=== PATIENT | male | born 1980 | race Caucasian/White ===

== ENCOUNTER 2023-07-10 08:50 | Inpatient (IN) ==
--- NOTE | 2023-06-21 10:04 | PAT Medication Instructions ---
Medication Instructions Date of Service June 21, 2023 Home Medications acetaminophen 325 mg tablet (Tylenol) 325 mg PO QID PRN Pain ibuprofen 200 mg tablet 200 mg PO Q6H PRN Pain omeprazole 20 mg capsule,delayed release 20 mg PO QAM PRN Heartburn ASK your surgeon for instructions ibuprofen 200 mg tablet 200 mg PO Q6H PRN Pain Take morning of surgery With a small sip of water, OTHERWISE NOTHING TO EAT OR DRINK AFTER MIDNIGHT: acetaminophen 325 mg tablet (Tylenol) 325 mg PO QID PRN Pain (if needed) omeprazole 20 mg capsule,delayed release 20 mg PO QAM PRN Heartburn (if needed) Take evening before surgery acetaminophen 325 mg tablet (Tylenol) 325 mg PO QID PRN Pain (if needed) Other Notes If you have any questions please call us at [phone] or [phone] or [phone] or [phone]
--- NOTE | 2023-06-27 14:14 | Anesthesiology Consultation ---
Date of Service June 27, 2023 Assessment & Plan (1) Encounter for pre-operative examination: - awaiting surgeon ordered medical clearance, Dr. Tigist BEGUM. Optimization form completed to be faxed to PCP with PAT testing. Chart Review Chart Review: Pending: Refer to Additional Notes / Consult section and Patient seen in Pre Admission Testing Teaching & Discussion Pre-Anesthesia Teaching/Discussion Notes: Instructed NPO after midnight before surgery, except medications with 15 cc of water. Medication instructions provided according to the PAT guidelines. History Surgery Operation Date: 07/10/23 11:05 Proposed Procedures p L5-S1 Decompression and Fusion, Spinal Cord Monitoring - John Shirley DO Height/Weight Height: 6 ft 1 in Weight: 79 kg Allergies Allergy/AdvReac Type Severity Reaction Status Date / Time No Known Allergies Allergy Verified 06/20/23 13:41 Additional Notes: Patient's mother is also present at PAT appointment. 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 speech can be difficult to understand, patient can read and sign his name, but does have difficult time writing. Chronic back pain Degenerative disc disease Heartburn occasional, controlled, stable per pt History of COVID-19 2020 - mild cold symptoms - denies hospitalization - symptoms resolved Sleep apnea hx of UPPP surgery, no machine currently. Spinal stenosis Patient denies h/o stroke, seizures, heart attack, heart failure, DM, HTN, blood clots/DVTs or blood transfusions. Exercise / Class Metabolic Activity II 4-5 Yardwork/Stairs/Walk up hill (denies chest discomfort or shortness of breath with 1 FOS) Past Family History Family History Other No family history of adverse response to anesthesia Past Surgical History Surgical History History of myringotomy BMT S/P epidural steroid injection S/P tendon repair bilateral knee and ankle tendons lengthened. (1992) Status post uvulopalatopharyngoplasty (~2017) Past Anesthesia History No Hx of Anesthesia Complications and No Family Hx of Anesthesia Complications History of PONV No Hx of PONV and No Hx of Motion Sickness Social History Smoking Status: Never smoker Do You Dip or Chew Tobacco: No Hx Alcohol Use: Yes Alcohol type: hard liquor alcohol intake frequency: a few times a week Hx Substance Use: No substance use type: does not use Review of Systems Patient denies chest pain, shortness of breath, dyspnea on exertion, fever, chills, cough, wheezing, or palpitations. Physical Exam Vital Signs Vitals BP 121/82 P 87 TEMP 98.2 SP02 94% on RA RESP 17 Physical Patient resting comfortably in chair in no acute distress, alert and oriented, responding appropriately throughout visit Full cervical extension range of motion without pain TMD 3.5 finger breadths Mallampati Score 3 Dentition: edentulous, full upper and lower dentures Lungs: normal respiratory effort. Good air movement, clear throughout to auscultation, no adventitious breath sounds Cardiac: regular rate and rhythm, no murmurs noted Carotid arteries: negative bruit bilat Lab Results Anesthesia Preop Results Results Anesthesia Widget: WBC 4.19 K/ul (4.8-10.8) L 06/27/23 Hgb 15.5 g/dl (14.0-18.0) 06/27/23 Hct 44.1 % (42.0-52.0) 06/27/23 Plt 233 K/uL (130-400) 06/27/23 Na 138 mmol/L (136-145) 06/27/23 K 4.3 mmol/L (3.5-5.1) 06/27/23 Cl 103 mmol/L (98-107) 06/27/23 CO2 30 mmol/L (21-32) 06/27/23 BUN 14 mg/dl (6-23) 06/27/23 Creat 1.39 mg/dl (0.6-1.4) 06/27/23 Glucose Level 85 mg/dl (70-99(Fasting)) 06/27/23 PT 10.9 Seconds (9.0-12.0) 06/27/23 PTT 27.2 Seconds (21.0-31.0) 06/27/23 INR 1.0 (0.9-1.1) 06/27/23 Urine Color Yellow 06/27/23 Urine Appearance Clear (Clear) 06/27/23 Urine pH 5.5 (4.5-7.5) 06/27/23 Urine Specific [place] 1.015 (1.000-1.030) 06/27/23 Urine Protein Negative (Negative) 06/27/23 Urine Glucose (UA) Negative (Negative) 06/27/23 Urine Ketones Negative (Negative) 06/27/23 Urine Blood Negative (Negative) 06/27/23 Urine Nitrite Negative (Negative) 06/27/23 Urine Bilirubin Negative (Negative) 06/27/23 Urine Urobilinogen Negative (Negative) 06/27/23 Urine Leukocyte Esterase Negative (Negative) 06/27/23 Blood Type O Negative 06/27/23 Antibody Screen NEGATIVE 06/27/23 Testing Electrocardiogram Date: 06/27/23 NSR, rate 86 bpm Chest X-Ray Date: 06/27/23 1. No air space consolidation typical for pneumonia. 2. Mild coarsening of the interstitium may be secondary to summation density versus less likely a nonspecific interstitial pneumonitis.
[~2023-07-10 08:50] MED LIST: ACETAMINOPHEN 500 MG TAB PO SCH; CeleBREX 200 MG CAP PO SCH; GABAPENTIN 900 MG DOSE PO SCH; LR 15ML/HR IV SCH; LR 60ML/HR IV SCH; ceFAZolin 2000MG 2,000 MG/15 ML SYR IV SCH
--- NOTE | 2023-07-10 09:42 | History & Physical Bridge Note ---
Date of Service July 10, 2023 History & Physical Bridge Note I have examined the patient, reviewed the History & Physical and in the interval since the performance of the History & Physical I have noted the following changes of clinical significance: no changes noted
--- NOTE | 2023-07-10 09:42 | History & Physical Report ---
Date of Service July 10, 2023 History of Present Illness Chief Complaint: Back and leg pain Primary Care Provider: GERONIMO DURAN This is a 43-year-old male who presents with chronic persistent back and leg pain after failing course of nonoperative care is here for surgical intervention. 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 speech can be difficult to understand, patient can read and sign his name, but does have difficult time writing. Chronic back pain Degenerative disc disease Heartburn occasional, controlled, stable per pt History of COVID-19 2020 - mild cold symptoms - denies hospitalization - symptoms resolved Sleep apnea hx of UPPP surgery, no machine currently. Spinal stenosis Surgical History History of myringotomy BMT S/P epidural steroid injection S/P tendon repair bilateral knee and ankle tendons lengthened. (1992) Status post uvulopalatopharyngoplasty (~2016) Family History Other No family history of adverse response to anesthesia Social History Smoking Status: Never smoker Second Hand Exposure: No; Do You Dip or Chew Tobacco: No; Tobacco Cessation Education Requested by Patient: No Hx Alcohol Use: Yes Alcohol type: hard liquor Hx Substance Use: No Preferred Language: Ecuadorean Communication Ability: Impaired Husbandry Person Required: No Beliefs That Will Affect Care: None Current Living Situation: Alone Other Information That Helps Us Care for You: No Feels Safe at Home: Yes Safety Concerns: Feels Safe At This Time Gender Identity: Male Assistive Devices: None Results & Data Results & Data Vital Signs (Past 12 Hours) Vital Signs Temp Pulse Resp BP Pulse Ox O2 Del Method 07/10/23 09:13 36.4 C L 71 18 128/82 95 Room Air
--- NOTE | 2023-07-10 09:44 | History & Physical Report ---
Date of Service July 10, 2023 Assessment & Plan (1) Neurogenic claudication due to lumbar spinal stenosis: Plan: L5-S1 decompression and fusion History of Present Illness Chief Complaint: Back and leg pain Primary Care Provider: GERONIMO DURAN This is a 43-year-old male who presents with chronic persistent back and leg pain after failing extensive course of nonoperative care is here for surgical intervention. 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 speech can be difficult to understand, patient can read and sign his name, but does have difficult time writing. Chronic back pain Degenerative disc disease Heartburn occasional, controlled, stable per pt History of COVID-19 2020 - mild cold symptoms - denies hospitalization - symptoms resolved Sleep apnea hx of UPPP surgery, no machine currently. Spinal stenosis Surgical History History of myringotomy BMT S/P epidural steroid injection S/P tendon repair bilateral knee and ankle tendons lengthened. (1992) Status post uvulopalatopharyngoplasty (~2016) Family History Other No family history of adverse response to anesthesia Social History Smoking Status: Never smoker Second Hand Exposure: No; Do You Dip or Chew Tobacco: No; Tobacco Cessation Education Requested by Patient: No Hx Alcohol Use: Yes Alcohol type: hard liquor Hx Substance Use: No Preferred Language: Nepalese Communication Ability: Impaired Web Services Architect Required: No Beliefs That Will Affect Care: None Current Living Situation: Alone Other Information That Helps Us Care for You: No Feels Safe at Home: Yes Safety Concerns: Feels Safe At This Time Gender Identity: Male Assistive Devices: None Physical Exam Physical Exam: Patient is alert and oriented Heart regular rhythm Lungs clear Results & Data Results & Data Vital Signs (Past 12 Hours) Vital Signs Temp Pulse Resp BP Pulse Ox O2 Del Method 07/10/23 09:13 36.4 C L 71 18 128/82 95 Room Air
[2023-07-10] MEDS ORDERED: BUPIVACAINE/EPINEPHRINE 0.25% 1:200,000 30 ML VIAL ONE (09:56)
[2023-07-10] MEDS ORDERED: ceFAZolin 330 MG/ML 1 GM VIAL ONE (09:56)
[2023-07-10] MEDS ORDERED: LIDOCAINE 2% 2 ML VIAL/AMP(20MG/ML) INFIL ONE (10:10)
[2023-07-10] MEDS ORDERED: PROPOFOL IV EMULSION 10 MG/ML 20 ML VIAL IV ONE (10:10)
[2023-07-10] MEDS ORDERED: ROCURONIUM BROMIDE 10 MG/ML 5 ML VIAL IV ONE ×2 (10:10→11:12)
[2023-07-10] MEDS ORDERED: fentaNYL citrate PF 100 MCG/2 ML VIAL ONE ×2 (10:11→10:37)
[2023-07-10] MEDS ORDERED: ONDANSETRON INJ 2 MG/ML 2 ML VIAL ONE (10:12)
[2023-07-10] MEDS ORDERED: DEXAMETHASONE SOD INJ 4 MG/ML VIAL ONE (10:12)
[2023-07-10] MEDS ORDERED: ATROPINE SULFATE 0.1 MG/ML 10ML SYR IV PRN (10:14)
[2023-07-10] MEDS ORDERED: ePHEDrine sulfate 50 MG/ML AMP IV PRN (10:14)
[2023-07-10] MEDS ORDERED: ONDANSETRON INJ 2 MG/ML 2 ML VIAL IV PRN (10:14)
[2023-07-10] MEDS ORDERED: ePHEDrine sulfate 50 MG/ML AMP ONE (11:12)
[2023-07-10] MEDS ORDERED: FLOSEAL HEMOSTATIC MATRIX 10ML TOP ONE (11:21)
[2023-07-10] MEDS ORDERED: HYDROmorphone INJ 2 MG/ML SYR/VIAL ONE (11:23)
[2023-07-10] MEDS ORDERED: SUGAMMADEX SODIUM 200 MG/2 ML VIAL IV ONE (12:22)
--- NOTE | 2023-07-10 12:29 | Operative Report ---
Post Operative Report Pre & Post Diagnosis Operation Date: 07/10/23 11:05 Pre-Op Diagnosis: Neurogenic claudication due to lumbar spinal stenosis Spondylolisthesis L5-S1 Post-Op Diagnosis: same I identified the patient and participated in the time-out.: Yes Procedure Operation Date: 07/10/23 11:05 Actual Procedures 1. Lumbar decompression with bilateral medial facetectomies and foraminotomies L4-5 L5-S1. #2 posterior spinal fusion L5-S1. #3 placed posterior instrumentation L5-S1. #4 interbody fusion L5-S1. #5 placement Spira 13 x 26 mm x 2 at L5-S1. #6 placement locally harvested morselized autograft posterior gutters. #7 placement of I factor amount of the talus in the interbody space and posterior gutters. Surgeon John Shirley, Group Social Worker Lamar Pérez Estimated Blood Loss 350 Findings Consistent with Post-Op Diagnosis Specimens none Indications This is a 43-year-old male who presents with spondylolisthesis back and bilaterally pain after failing since course of nonoperative care is here for surgical invention. Description of Procedure Patient was met with identified informed consent obtained. Patient was then taken to the operative suite underwent a patient placed in a prone position on the Kwesi table top of the Edilberto frame. All bony promises well-padded eyes inspected to ensure no external pressure placed upon them. This point lumbar spine was prepped and draped in a sterile fashion. Sharp dissection with the assistance of Bovie cautery to form down to and exposing the lamina and transverse processes of L5 and the sacral ala bilaterally. Obvious bilateral pars defect and spina bifida occulta noted. Complete laminectomy L5 was then performed including partial laminectomy of L4 to include bilateral medial facetectomies and foraminotomies addressing severe neural compression. Pedicle screws were then placed in L5 and S1 levels bilaterally with assistance of fluoroscopy and the properly sized aurelio placed. By way of transforaminal approach on the right and discectomy was performed endplates curetted to subcortical bleeding bone and a 13 x 26 mm Spira cage with I factor tapped the position. Then proceeded to the left transforaminal region remove the remainder of the disc endplates curetted to subcortical bleeding bone and a second 13 x 26 mm Spira cage filled with I factor tapped in position. The rods were then locked in final position bilaterally. Transverse processes of L5 and the sacral ala burred to subcortically bone. I factor combined with the v toss and locally harvested morselized autograft was then placed in the posterior gutters. 15 round SANTY drain inserted. The incision was then closed with 1 Vicryl to fascia 2-0 Vicryl subcutaneously and 4 Monocryl for final skin closure. Steri-Strips sterile dressing placed. Patient awakened taken to PACU stable condition. Please note spinal cord monitoring visualized at the procedure no changes noted. Lastly Lamar Gant was present at the entire surgeon while the patient positioning complex portion of the surgery and final skin closure. I attest to the content of the Intraoperative Record and any orders documented therein. Any exceptions are noted below.
--- NOTE | 2023-07-10 12:34 | Fluoroscopy Report ---
FL lumbar spine 2-3V CLINICAL HISTORY: L5-S1 DECOMPRESSION AND FUSION COMPARISON STUDY: None. FLUOROSCOPY TIME: 19 seconds. Ka, r: 15.14 mGy FLUOROSCOPIC IMAGES: 2 FINDINGS: Fluoroscopy was provided during L5-S1 discectomy with interbody spacer placement, posterior decompression and bilateral pedicle screw fusion. Hardware is intact. IMPRESSION: Fluoroscopy provided during L5-S1 discectomy, posterior decompression and bilateral pedi veronique screw fusion. ACT 112: Negative or not required by law. Electronically signed by: Ross Herrera M.D. 07/10/2023 12:33 PM
[2023-07-10] MEDS: fentaNYL citrate PF 100 MCG/2 ML VIAL IV PRN ×2 (12:55→13:05)
[2023-07-10] MEDS: HYDROmorphone INJ 2 MG/ML SYR/VIAL IV PRN ×2 (13:22→13:28)
[2023-07-10] MEDS ORDERED: LORazepam 2 MG/1 ML VIAL IV PRN (14:14)
[2023-07-10] MEDS ORDERED: PROMETHAZINE HCL 12.5 MG in SODIUM CHLORIDE 0.9% 50 ML IV PRN (14:14)
[2023-07-10] MEDS ORDERED: FAMOTIDINE 20 MG TAB PO PRN (14:14)
[2023-07-10] MEDS ORDERED: ALUMINUM/MAGNESIUM SUSP 30 ML UDC PO PRN (14:14)
[2023-07-10] MEDS ORDERED: DO NOT ADMINISTER FLU VACCINE PRN (14:14)
[2023-07-10] MEDS ORDERED: DO NOT ADMINISTER PNEUMOCOCCAL VACCINE PRN (14:14)
[2023-07-10] MEDS ORDERED: MAGNESIUM HYDROXIDE SUSP 30 ML UDC PO PRN (14:14)
[2023-07-10] MEDS ORDERED: NALOXONE HCL 0.4 MG/1 ML VIAL/CARP IV PRN (14:14)
[2023-07-10] MEDS ORDERED: bisacodyL 10 MG SUPP PR PRN (14:14)
[2023-07-10] MEDS ORDERED: ONDANSETRON 4 MG OD TAB PO PRN (14:14)
[2023-07-10] MEDS ORDERED: diphenhydrAMINE Capsule 25 MG CAP PO PRN (14:14)
[2023-07-10] MEDS ORDERED: ACETAMINOPHEN 1,000 MG/100 ML VIAL IV PRN (14:14)
[2023-07-10] MEDS ORDERED: hydrOXYzine HCl 25 MG TAB PO PRN (14:14)
[2023-07-10] MEDS ORDERED: METOCLOPRAMIDE HCL INJ 5 MG/ML 2 ML VIAL IV PRN (14:14)
[2023-07-10] MEDS ORDERED: SOD PHOSPHATE/SOD BIPHOSPHATE ENEMA 132 ML BTL PR PRN (14:14)
[2023-07-10] MEDS ORDERED: PANTOprazole 40 MG TAB PO PRN (14:30)
[2023-07-10] MEDS: LACTATED RINGER'S 1,000 ML IV SCH (14:47)
--- NOTE | 2023-07-10 14:53 | Anesthesiology Progress Note ---
Date of Service July 10, 2023 Anesthesia Post Procedure Vital Signs Vital Signs: Temp Pulse Pulse Resp BP Pulse Ox O2 Del Method 07/10/23 14:44 36.4 C L 100 H 18 128/84 95 Nasal Cannula 07/10/23 13:55 36.8 C 100 H 18 129/81 96 Nasal Cannula 07/10/23 13:15 83 10 L 123/77 96 Oxymask 07/10/23 13:05 85 13 117/75 96 Oxymask 07/10/23 12:55 97 H 19 124/70 98 Oxymask 07/10/23 12:45 36.6 C 95 H 18 134/75 97 Oxymask 07/10/23 09:13 36.4 C L 71 18 128/82 95 Room Air O2 Flow Rate 07/10/23 14:44 2 07/10/23 13:55 2 07/10/23 13:15 5 07/10/23 13:05 5 07/10/23 12:55 5 07/10/23 12:45 5 07/10/23 09:13 Pain Intensity Medial Back: Pain Intensity: 5 Transfer of Care Handoff Completed per policy Notes Mental Status: alert / awake / arousable and participated in evaluation Patient Amnestic to Procedure: Yes Nausea / Vomiting: adequately controlled Pain: adequately controlled Airway Patency, RR, SpO2: stable & adequate BP & HR: stable & adequate Hydration State: stable & adequate Anesthetic Complications: no major complications apparent and Pt Satisfied with anesthetic care
[2023-07-10] MEDS: ceFAZolin 2000MG 2,000 MG/15 ML SYR IV SCH (18:43)
[2023-07-10] MEDS: oxyCODONE HCL IR 5 MG TAB (IMMEDIATE RELEASE) PO PRN (21:19)
[2023-07-10] MEDS: DOCUSATE SODIUM/SENNA 50/8.6MG TAB PO SCH (21:21)
[2023-07-10] MEDS: KETOROLAC 30 MG/ML VIAL IV SCH (21:21)
[2023-07-11] MEDS: LACTATED RINGER'S 1,000 ML IV SCH ×2 (01:01→05:36)
[2023-07-11] MEDS: oxyCODONE HCL IR 5 MG TAB (IMMEDIATE RELEASE) PO PRN ×2 (02:46→20:29)
[2023-07-11] MEDS: KETOROLAC 30 MG/ML VIAL IV SCH ×3 (02:47→16:15)
[2023-07-11] MEDS: ceFAZolin 2000MG 2,000 MG/15 ML SYR IV SCH (02:47)
[2023-07-11] MEDS: POLYETHYLENE (MIRALAX) 17 GM PACK PO SCH ×2 (05:40→12:53)
[2023-07-11 06:27] LABS: Basophils # (auto) 0.01 K/uL (0.00-0.20); Basophils % (auto) 0.1 %; Eosinophils # (auto) 0.01 K/uL (0.00-0.50); Eosinophils % (auto) 0.1 %; Hematocrit (blood only) 33.3 % (42.0-52.0); Hemoglobin 11.8 g/dl (14.0-18.0); Immature Granulocytes # (auto) 0.02 K/uL (0.01-0.20); Immature Granulocytes % (auto) 0.2 %; Lymphocytes # (auto) 0.98 K/uL (1.20-3.40); Lymphocytes % (auto) 11.1 %; Mean Corpuscular Hemoglobin 32.3 pg (25.0-34.0); Mean Corpuscular Hgb Conc 35.4 g/dL (32.0-36.0); Mean Corpuscular Volume 91.2 fL (80.0-100.0); Mean Platelet Volume 9.2 fL (9.4-12.4); Monocytes # (auto) 0.64 K/uL (0.11-0.59); Monocytes % (auto) 7.2 %; Neutrophils % (auto) 81.3 %; Platelet Count 183 K/uL (130-400); Red Blood Count 3.65 M/uL (4.70-6.10); White Blood Count 8.86 K/ul (4.8-10.8)
[2023-07-11 06:47] LABS: BUN Creatinine Ratio 12.8 (10-20); Calcium 8.4 mg/dl (8.6-10.3); Creatinine Clr Calc Pharmacy 109.9 ml/min; Est GFR (Non-African American) 97.5 ml/min; Potassium 4.2 mmol/L (3.5-5.1)
[2023-07-11] MEDS: dexAMETHasone 6 MG in SYRINGE 0 ML IV SCH (08:50)
--- NOTE | 2023-07-11 12:31 | Orthopedic Progress Note ---
Date of Service July 11, 2023 Assessment & Plan (1) Neurogenic claudication due to lumbar spinal stenosis: Plan: At this time continue physical therapy monitor his SANTY output of the discharge home next few days. Admission and Anticipated Discharge Date Admission Date: July 10, 2023 Subjective She is back pain controlled leg pain markedly improved Physical Exam Physical Exam: Patient is in the chair at the bedside appears comfortable. Good strength testing. Results & Data Vital Signs (Past 12 Hours) Vital Signs Temp Pulse Resp BP Pulse Ox O2 Del Method 07/11/23 07:10 36.5 C 88 18 133/81 94 Room Air 07/11/23 02:32 36.8 C 87 18 118/73 94 Room Air
[2023-07-11] MEDS: DOCUSATE SODIUM/SENNA 50/8.6MG TAB PO SCH (20:31)
[2023-07-12] MEDS: oxyCODONE HCL IR 5 MG TAB (IMMEDIATE RELEASE) PO PRN ×3 (02:22→12:58)
[2023-07-12] MEDS: dexAMETHasone 6 MG in SYRINGE 0 ML IV SCH (07:26)
--- NOTE | 2023-07-12 08:24 | Orthopedic Progress Note ---
Date of Service July 12, 2023 Assessment & Plan (1) Neurogenic claudication due to lumbar spinal stenosis: Plan: Maikel is postoperative day 2 status post TLIF L5-S1. He is doing well. We will continue with pain control. Maintain SANTY drain due to output. Continue physical therapy and ambulation in the hallway. Anticipate discharge home tomorrow. Admission and Anticipated Discharge Date Admission Date: July 10, 2023 Subjective DVTCarl is postoperative day 2 status post TLIF L5-S1. He is doing well. Hip/leg pain has resolved. Back pain is controlled. SANTY drain output last shift is 60 cc. He had a bowel movement. Yesterday in physical therapy ambulating roughly 200 feet. Review of Systems Review of Systems: All systems reviewed & are unremarkable except as noted in HPI & below Physical Exam Physical Exam: He is sitting in a chair eating breakfast no acute distress alert and oriented x3 lumbar dressing is clean dry intact and functioning SANTY drain calf soft nontender bilaterally strength intact bilateral lower extremities Results & Data Vital Signs (Past 12 Hours) Vital Signs Temp Pulse Resp BP Pulse Ox O2 Del Method 07/12/23 07:33 36.6 C 94 H 16 119/81 96 Room Air 07/11/23 20:39 Room Air
[2023-07-12] MEDS: ACETAMINOPHEN 500 MG TAB PO PRN (17:19)
[2023-07-12] MEDS: HYDROmorphone INJ 1 MG/ML SYRINGE IV PRN (18:01)
[2023-07-12] MEDS: SODIUM CHLORIDE 0.9% 1,000 ML IV SCH (18:13)
[2023-07-12] MEDS: DOCUSATE SODIUM/SENNA 50/8.6MG TAB PO SCH (19:43)
[2023-07-13] MEDS: HYDROmorphone INJ 1 MG/ML SYRINGE IV PRN ×6 (04:06→22:00)
[2023-07-13] MEDS: ONDANSETRON INJ 2 MG/ML 2 ML VIAL IV PRN ×2 (04:07→10:11)
[2023-07-13] MEDS: dexAMETHasone 6 MG in SYRINGE 0 ML IV SCH (07:22)
[2023-07-13] MEDS: oxyCODONE HCL IR 5 MG TAB (IMMEDIATE RELEASE) PO PRN (07:25)
--- NOTE | 2023-07-13 08:18 | Orthopedic Progress Note ---
Date of Service July 13, 2023 Assessment & Plan (1) Neurogenic claudication due to lumbar spinal stenosis: Plan: Patient states he is suffering from postop CSF leak. This occurred on postop day #2. Were going to have him undergo approximately 48 hours of bedrest with head of bed flat. He may sit up to eat. We will then reinitiate physical therapy. Have increased his IV fluids to 100 cc an hour. Admission and Anticipated Discharge Date Admission Date: July 10, 2023 Subjective Patient's headaches have improved.Denies any neck pain. Denies any leg pain. Physical Exam Physical Exam: Patient is lying in bed. He is demonstrating good strength testing lower extremities. Incision has some modest swelling is no fluid wave. There is no gross drainage. Nontender to palpation. Results & Data Vital Signs (Past 12 Hours) Vital Signs Temp Pulse Resp BP Pulse Ox O2 Del Method 07/13/23 07:39 Room Air 07/13/23 07:29 36.9 C 94 H 16 136/87 95 Room Air
[2023-07-13] MEDS: SODIUM CHLORIDE 0.9% 1,000 ML IV SCH ×2 (12:29→22:00)
[2023-07-13] MEDS: DOCUSATE SODIUM/SENNA 50/8.6MG TAB PO SCH (22:00)
[2023-07-14] MEDS: HYDROmorphone INJ 1 MG/ML SYRINGE IV PRN ×3 (01:05→08:09)
[2023-07-14] MEDS: SODIUM CHLORIDE 0.9% 1,000 ML IV SCH ×2 (08:08→17:49)
--- NOTE | 2023-07-14 09:17 | Orthopedic Progress Note ---
Date of Service July 14, 2023 Assessment & Plan (1) Neurogenic claudication due to lumbar spinal stenosis: Plan: At this time we will maintain another 24 hours of bedrest he may lay on his side. We will hopefully be able to transition from bed to chair starting this weekend. If he fails to demonstrate resolution of the CSF leak we may have to consider surgical exploration.. Admission and Anticipated Discharge Date Admission Date: July 10, 2023 Subjective Patient is comfortable in bed. He is struggling with some neck pain but this seems to be related to chronic condition. Physical Exam Physical Exam: At this time he is neurologically intact. Is comfortable lying supine. Results & Data Vital Signs (Past 12 Hours) Vital Signs Temp Pulse Resp BP Pulse Ox O2 Del Method 07/14/23 07:09 37 C 102 H 20 159/84 H 94 Room Air 07/13/23 22:05 89
[2023-07-14] MEDS: LORazepam 0.5 MG TAB PO PRN ×2 (10:51→19:22)
[2023-07-14] MEDS: oxyCODONE HCL IR 5 MG TAB (IMMEDIATE RELEASE) PO PRN ×3 (11:31→20:24)
[2023-07-14] MEDS: DOCUSATE SODIUM/SENNA 50/8.6MG TAB PO SCH (20:24)
[2023-07-15] MEDS: ACETAMINOPHEN 500 MG TAB PO PRN (00:32)
[2023-07-15] MEDS: oxyCODONE HCL IR 5 MG TAB (IMMEDIATE RELEASE) PO PRN ×4 (03:32→19:42)
[2023-07-15] MEDS: SODIUM CHLORIDE 0.9% 1,000 ML IV SCH ×3 (03:33→23:42)
--- NOTE | 2023-07-15 07:04 | Orthopedic Progress Note ---
Date of Service July 15, 2023 Assessment & Plan (1) Neurogenic claudication due to lumbar spinal stenosis: Plan Patient is stable status post lumbar decompression fusion. Unfortunately patient has spontaneous spinal fluid leak which we have to keep him down today and likely tomorrow as well. We will consider giving him to bed to chair tomorrow. He may sit up to for meals. Continue GI DVT prophylaxis as well as pain control. We will see how he does today hopefully get him from bed to chair tomorrow morning. Admission and Anticipated Discharge Date Admission Date: July 10, 2023 Subjective Patient was seen bedside in room 303. He has no complaints of pain. He is stated that he just wants to leave. He denies any headaches at this point. He denies any other numbness, tingling, or paresthesias. Physical Exam Physical Exam: On exam he is alert. He is unsure what day it is. His lower extremity motor exam reveals full strength and sensation. His dressing is clean dry and intact. Abdomen soft and nontender. His calves are supple and nontender. Results & Data Vital Signs (Past 12 Hours) Vital Signs Temp Pulse Resp BP Pulse Ox O2 Del Method 07/14/23 23:02 37.5 C 119 H 20 156/89 H 93 Room Air
[2023-07-15] MEDS: HYDROmorphone INJ 1 MG/ML SYRINGE IV PRN ×3 (11:51→22:36)
[2023-07-15] MEDS: LORazepam 0.5 MG TAB PO PRN (17:08)
[2023-07-15] MEDS: DOCUSATE SODIUM/SENNA 50/8.6MG TAB PO SCH (20:47)
[2023-07-16] MEDS: ACETAMINOPHEN 500 MG TAB PO PRN ×2 (00:53→19:58)
[2023-07-16] MEDS: oxyCODONE HCL IR 5 MG TAB (IMMEDIATE RELEASE) PO PRN ×4 (02:25→17:58)
--- NOTE | 2023-07-16 09:44 | Orthopedic Progress Note ---
Date of Service July 16, 2023 Assessment & Plan (1) Neurogenic claudication due to lumbar spinal stenosis: Plan: Patient is doing better today. His pain is better controlled. Try getting him from bed to chair today. If he starts having any headaches he still needs to be head of bed flat. He may sit up for meals. We will continue GI and DVT prophylaxis and pain control. Admission and Anticipated Discharge Date Admission Date: July 10, 2023 Subjective Patient was seen bedside in room 303. He is doing better today. He seems to be more clear. He is not having any headaches. He is having no abdominal pain. He denies any other numbness, tingling, paresthesias. Physical Exam Physical Exam: On exam he is alert and oriented. His calves are supple nontender his abdomen soft and nontender. His dressing is clean dry and intact. Strength and sensation are both intact. Gait was not observed. Results & Data Vital Signs (Past 12 Hours) Vital Signs Temp Pulse Pulse Resp BP Pulse Ox O2 Del Method 07/16/23 07:45 Room Air 07/16/23 07:02 36.9 C 100 H 16 128/87 96 Room Air 07/15/23 23:42 36.7 C 118 H 18 136/96 98 Room Air
[2023-07-16] MEDS: SODIUM CHLORIDE 0.9% 1,000 ML IV SCH ×2 (10:00→19:11)
[2023-07-16] MEDS: HYDROmorphone INJ 1 MG/ML SYRINGE IV PRN ×2 (16:01→22:13)
[2023-07-16] MEDS ORDERED: COUGH DROP (SUGAR FREE) LOZ 24 LOZ/1 BOX BUCCAL ONE (17:36)
[2023-07-16] MEDS: DOCUSATE SODIUM/SENNA 50/8.6MG TAB PO SCH (19:59)
[2023-07-17] MEDS: oxyCODONE HCL IR 5 MG TAB (IMMEDIATE RELEASE) PO PRN ×4 (02:02→18:47)
[2023-07-17] MEDS: SODIUM CHLORIDE 0.9% 1,000 ML IV SCH ×2 (04:39→14:50)
[2023-07-17] MEDS: traMADol HCL 50 MG TABLET PO PRN ×3 (07:30→21:30)
--- NOTE | 2023-07-17 10:12 | Orthopedic Progress Note ---
Date of Service July 17, 2023 Assessment & Plan (1) Neurogenic claudication due to lumbar spinal stenosis: Plan: At this time experiencing no radiculopathy will initiate physical therapy. I will make him n.p.o. after midnight in the event he is unable to tolerate this may have to consider I&D. Admission and Anticipated Discharge Date Admission Date: July 10, 2023 Subjective Patient complaining of neck pain but emphasizes this has been well-established. Denies any headaches at this time. He states he is tolerating sitting yesterday. He feels quite weak getting out of bed. Physical Exam Physical Exam: On exam the dressing is dry. There are some modest swelling but nontender. There is no fluid wave. He has good strength testing and sensory intact bilateral extremities. Results & Data Vital Signs (Past 12 Hours) Vital Signs Temp Pulse Resp BP Pulse Ox O2 Del Method 07/17/23 08:28 Room Air 07/17/23 07:50 36.9 C 93 H 18 118/82 95 Room Air
--- NOTE | 2023-07-17 11:29 | XRay Report ---
XR chest 2V PA/lateral CLINICAL HISTORY: postop TECHNIQUE: 2 views of the chest were obtained. Comparison: Comparison is made to chest radiograph 06/27/2023 FINDINGS: No lines and tubes are seen. The cardiomediastinal silhouette is normal. The lungs are clear. No evid ence of pleural effusion or pneumothorax. IMPRESSION: No acute chest disease. ACT 112: Negative or not required by law. Electronically signed by: Adam Mares M.D. 07/17/2023 11:28 AM
[2023-07-17] MEDS: LORazepam 0.5 MG TAB PO PRN (21:31)
[2023-07-17] MEDS: DOCUSATE SODIUM/SENNA 50/8.6MG TAB PO SCH (21:32)
[2023-07-18] MEDS: oxyCODONE HCL IR 5 MG TAB (IMMEDIATE RELEASE) PO PRN ×2 (00:22→20:34)
[2023-07-18] MEDS: SODIUM CHLORIDE 0.9% 1,000 ML IV SCH ×2 (00:23→09:40)
[2023-07-18] MEDS: traMADol HCL 50 MG TABLET PO PRN ×2 (03:31→08:49)
--- NOTE | 2023-07-18 12:27 | Orthopedic Progress Note ---
Date of Service July 18, 2023 Assessment & Plan (1) Neurogenic claudication due to lumbar spinal stenosis: Plan: At this time is failing to progress appropriately. I am concerned that he has a seroma possible CSF leak and we will plan for irrigation debridement today. Admission and Anticipated Discharge Date Admission Date: July 10, 2023 Subjective Patient continues to struggle with back pain and bilateral buttock pain. He is having continued medical discomfort and headaches with physical therapy. Physical Exam Physical Exam: On exam is currently in bed. He is neurologically intact. Dressings in place. Results & Data Vital Signs (Past 12 Hours) Vital Signs Temp Pulse Resp BP O2 Del Method 07/18/23 08:52 Room Air 07/18/23 07:24 36.8 C 100 H 18 138/96
[2023-07-18] MEDS ORDERED: MIDAZOLAM HCL 1 MG/ML 2ML VIAL ONE (12:41)
[2023-07-18] MEDS ORDERED: PROPOFOL IV EMULSION 10 MG/ML 20 ML VIAL IV ONE (12:41)
[2023-07-18] MEDS ORDERED: fentaNYL citrate PF 100 MCG/2 ML VIAL ONE (12:41)
[2023-07-18] MEDS ORDERED: LIDOCAINE 2% 2 ML VIAL/AMP(20MG/ML) INFIL ONE (12:41)
[2023-07-18] MEDS ORDERED: ONDANSETRON INJ 2 MG/ML 2 ML VIAL ONE (12:41)
[2023-07-18] MEDS ORDERED: DEXAMETHASONE SOD INJ 4 MG/ML VIAL ONE (12:41)
[2023-07-18] MEDS ORDERED: ROCURONIUM BROMIDE 10 MG/ML 5 ML VIAL IV ONE (12:41)
[2023-07-18] MEDS: HYDROmorphone INJ 0.5 MG/0.5 ML SYR IV PRN ×2 (13:16→18:44)
[2023-07-18] MEDS ORDERED: BUPIVACAINE/EPINEPHRINE 0.25% 1:200,000 30 ML VIAL ONE (13:43)
[2023-07-18] MEDS ORDERED: ceFAZolin 330 MG/ML 1 GM VIAL ONE (13:43)
--- NOTE | 2023-07-18 13:59 | Anesthesiology Consultation ---
Date of Service July 18, 2023 Assessment & Plan Chart Review Chart Review: Acceptable Risk for Surgery Consults Requested none History Surgery Operation Date: 07/10/23 11:05 Proposed Procedures p L5-S1 Decompression and Fusion, Spinal Cord Monitoring - John Shirley DO Operation Date: 07/18/23 10:50 Proposed Procedures p Incision and Drainage Lumbar - John Shirley DO Height/Weight Height: 6 ft 1 in Weight: 78.3 kg Allergies Allergy/AdvReac Type Severity Reaction Status Date / Time No Known Allergies Allergy Verified 06/20/23 13:41 Medications Home Medications Medication Instructions Recorded Confirmed Last Taken acetaminophen 325 mg tablet 325 mg PO QID PRN Pain 06/20/23 07/10/23 Unknown (Tylenol) ibuprofen 200 mg tablet 200 mg PO Q6H PRN Pain 06/20/23 07/10/23 Unknown omeprazole 20 mg capsule,delayed 20 mg PO QAM PRN Heartburn 06/20/23 07/10/23 07/09/23 21:00 release oxycodone 5 mg tablet 5 mg PO Q6H PRN pain #30 tabs 07/11/23 Unknown tramadol 50 mg tablet 50 mg PO Q6H PRN pain, moderate 07/11/23 Unknown #30 tabs Active Medications Generic Name Dose Route Start Last Admin Trade Name Freq PRN Reason Stop Dose Admin Acetaminophen 1,000 mg 07/10/23 14:14 07/16/23 19:58 Acetaminophen 500 Mg Tab PO 08/09/23 14:13 1,000 mg Q8H PRN Administration MILD Pain Scale 1,2,3 & Pre PT Diphenhydramine HCl 25 mg 07/10/23 14:14 07/17/23 21:31 Diphenhydramine Capsule 25 Mg Cap PO 08/09/23 14:13 25 mg Q6H PRN Administration Allergic Rhinitis/Insomnia Hydromorphone HCl 0.5 mg 07/10/23 14:14 07/18/23 13:16 Hydromorphone Inj 0.5 Mg/0.5 Ml Syr IV 07/24/23 14:13 0.5 mg Q3H PRN Administration MODERATE Pain (Scale 4,5,6) & Pre PT Hydromorphone HCl 1 mg 07/10/23 14:14 07/16/23 22:13 Hydromorphone Inj 1 Mg/Ml Syringe IV 07/24/23 14:13 1 mg Q3H PRN Administration SEVERE Pain (Scale 7,8,9,10) Sodium Chloride 1,000 mls @ 100 mls/hr 07/12/23 18:15 07/18/23 13:43 Nss IV 08/11/23 18:14 0 mls/hr .Q10H DACIA Infusion Lorazepam 0.5 mg 07/10/23 14:14 07/17/23 21:31 Lorazepam 0.5 Mg Tab PO 08/09/23 14:13 0.5 mg Q8H PRN Administration Sedation/Anxiety Ondansetron HCl 4 mg 07/10/23 14:14 07/13/23 10:11 Ondansetron Inj 2 Mg/Ml 2 Ml Vial IV 08/09/23 14:13 4 mg Q6H PRN Administration Nausea &/or Vomiting Oxycodone HCl 5 - 10 mg 07/10/23 14:14 07/18/23 00:22 Oxycodone Hcl Ir 5 Mg Tab (Immediate Release) PO 07/24/23 14:13 10 mg Q4H PRN Administration Pain & Pre PT Senna/Docusate Sodium 2 tab 07/10/23 21:00 07/17/23 21:32 Docusate Sodium/Senna 50/8.6mg Tab PO 08/09/23 20:59 Not Given HS DACIA Tramadol HCl 50 - 100 mg 07/10/23 14:14 07/18/23 08:49 Tramadol Hcl 50 Mg Tablet PO 08/09/23 14:13 100 mg Q4H PRN Administration Moderate-Severe pain & Pre PT NPO Date Last Intake of Fluids: 07/18/23 Time Last Intake of Fluids: 08:30 Last Intake of Fluids Comment: 4 oz water Date Last Intake of Solids: 07/17/23 Time Last Intake of Solids: 17:00 Past Medical History Medical History (Updated 07/10/23 @ 09:43 by John Shirley DO) Cerebral palsy lives alone, 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 speech can be difficult to understand, patient can read and sign his name, but does have difficult time writing. Chronic back pain Degenerative disc disease Heartburn occasional, controlled, stable per pt History of COVID-2020 - mild cold symptoms - denies hospitalization - symptoms resolved Sleep apnea hx of UPPP surgery, no machine currently. Spinal stenosis Past Family History Family History Other No family history of adverse response to anesthesia Past Surgical History Surgical History History of myringotomy BMT S/P epidural steroid injection S/P tendon repair bilateral knee and ankle tendons lengthened. (1992) Status post uvulopalatopharyngoplasty (~2017) Social History Smoking Status: Never smoker Do You Dip or Chew Tobacco: No Hx Alcohol Use: Yes Alcohol type: hard liquor alcohol intake frequency: a few times a week Hx Substance Use: No substance use type: does not use Physical Exam Vital Signs Last Vital Signs Temp 37.3 C 07/18/23 13:49 Pulse 115 H 07/18/23 13:49 Resp 20 07/18/23 13:49 BP 141/92 H 07/18/23 13:49 Pulse Ox 96 07/18/23 13:49 O2 Del Method Room Air 07/18/23 13:49 O2 Flow Rate 2 07/10/23 17:28 Constitutional no acute distress ENMT Mouth: + edentulous; no dentition abnormality Thyromental Distance: > or= 3.5 Finger Breadths Mallampati Class: II Neck normal visual inspection Respiratory normal respiratory effort; no respiratory distress Auscultation: lungs clear to auscultation bilaterally Cardiovascular Rate/Rhythm: regular rate and regular rhythm Heart Sounds: no murmur Musculoskeletal Spine: normal cervical ROM Psychiatric Orientation: alert and oriented x 3 Testing Laboratory Results 07/11/23 05:26 07/11/23 05:26 Electrocardiogram Date: 06/27/23 NSR, rate 86 bpm Chest X-Ray Date: 06/27/23 1. No air space consolidation typical for pneumonia. 2. Mild coarsening of the interstitium may be secondary to summation density versus less likely a nonspecific interstitial pneumonitis.
[2023-07-18] MEDS ORDERED: LACTATED RINGER'S 1,000 ML IV SCH (14:00)
[2023-07-18] MEDS ORDERED: ePHEDrine sulfate 50 MG/ML AMP IV PRN (14:35)
[2023-07-18] MEDS ORDERED: ATROPINE SULFATE 0.1 MG/ML 10ML SYR IV PRN (14:35)
--- NOTE | 2023-07-18 14:37 | History & Physical Bridge Note ---
Date of Service July 18, 2023 History & Physical Bridge Note I have examined the patient, reviewed the History & Physical and in the interval since the performance of the History & Physical I have noted the following changes of clinical significance: Irrigation and debridement L5-S1
[2023-07-18] MEDS ORDERED: ceFAZolin 2,000 MG/15 ML IV PUSH IV ONE (14:38)
[2023-07-18] MEDS ORDERED: ceFAZolin 2000MG 2,000 MG/15 ML SYR IV ONE (14:49)
[2023-07-18] MEDS ORDERED: SUGAMMADEX SODIUM 200 MG/2 ML VIAL IV ONE (15:29)
--- NOTE | 2023-07-18 15:40 | Operative Report ---
Post Operative Report Pre & Post Diagnosis Operation Date: 07/18/23 10:50 Pre-Op Diagnosis: Suspected CSF Leak Post-Op Diagnosis: Confirmed CSF Leak I identified the patient and participated in the time-out.: Yes Procedure Operation Date: 07/18/23 10:50 Actual Procedures Irrigation and drainage of lumbar spine with repair of CSF leak Surgeon John Shirley DO Speech Clinician Lamar Pérez Estimated Blood Loss 350 Findings Consistent with Post-Op Diagnosis Specimens None Indications This is a 43-year-old male that presents approximately 2 days postop with evidence of a spinal headache. After 48 hours of bedrest would begin mobilization but unfortunately his symptoms tended to return subsequently we elected undergo I&D and exploration of the wound for possible CSF leak. Description of Procedure Patient was met with identified informed consent obtained. Patient was then taken to the operative suite underwent intubation and placed in prone position on the [place] table top Edilberto frame. All bony promises well-padded eyes inspected to ensure no external pressure placed upon them at this point the lumbar spine was prepped draped normal sterile fashion. Utilizing the previous incision site sharp dissection formed down to and exposing the fascia. The fascia was then released and obvious serosanguineous fluid identified. The area was copiously irrigated and identified a midline durotomy 5 mm in length that had developed postoperatively. It was obviously leaking CSF. I placed Nurolon sutures to include primarily closed the durotomy. We tested it with Valsalva maneuver noting no obvious leak. Then placed a DuraGen patch over the repaired site. The incision was then closed with 1 Vicryl to fascia 2-0 Vicryl subcutaneously and 4 Monocryl for final skin closure. Steri-Strips sterile dressing placed. Patient waken taken to PACU in stable condition. Please note Lamar Gant was present at the entire procedure involved in patient positioning complex portion of the surgery and final skin closure. I attest to the content of the Intraoperative Record and any orders documented therein. Any exceptions are noted below.
[2023-07-18] MEDS ORDERED: FLOSEAL HEMOSTATIC MATRIX 5ML TOP ONE (15:43)
--- NOTE | 2023-07-18 16:24 | Anesthesiology Progress Note ---
Date of Service July 18, 2023 Anesthesia Post Procedure Vital Signs Vital Signs: Temp Pulse Pulse Pulse Resp BP BP 07/18/23 16:15 90 19 149/85 H 07/18/23 16:05 90 20 144/87 H 07/18/23 15:55 96.8 F L 94 H 20 160/101 H 07/18/23 13:49 99.1 F 115 H 20 141/92 H 07/18/23 08:52 07/18/23 07:24 98.2 F 100 H 18 138/96 07/17/23 20:00 07/17/23 20:44 98.8 F 97 H 18 125/81 Pulse Ox O2 Del Method O2 Flow Rate 07/18/23 16:15 94 Room Air 07/18/23 16:05 93 Room Air 07/18/23 15:55 100 Oxymask 8 07/18/23 13:49 96 Room Air 07/18/23 08:52 Room Air 07/18/23 07:24 07/17/23 20:00 Room Air 07/17/23 20:44 94 Room Air Pain Intensity Medial Back: Pain Intensity: 5 Lower Back: Pain Intensity: 3 Head: Pain Intensity: 9 Transfer of Care Handoff Completed per policy Notes Mental Status: alert / awake / arousable and participated in evaluation Patient Amnestic to Procedure: Yes Nausea / Vomiting: adequately controlled Pain: adequately controlled Airway Patency, RR, SpO2: stable & adequate BP & HR: stable & adequate Hydration State: stable & adequate Anesthetic Complications: no major complications apparent and Pt Satisfied with anesthetic care
[2023-07-18] MEDS: DOCUSATE SODIUM/SENNA 50/8.6MG TAB PO SCH (20:38)
[2023-07-19] MEDS: traMADol HCL 50 MG TABLET PO PRN (01:15)
[2023-07-19] MEDS: SODIUM CHLORIDE 0.9% 1,000 ML IV SCH ×3 (01:17→19:26)
[2023-07-19] MEDS: oxyCODONE HCL IR 5 MG TAB (IMMEDIATE RELEASE) PO PRN ×3 (04:53→19:26)
--- NOTE | 2023-07-19 11:20 | Orthopedic Progress Note ---
Date of Service July 19, 2023 Assessment & Plan (1) Neurogenic claudication due to lumbar spinal stenosis: Plan: At this time we will initiate bed to chair transfers. If he tolerates the chair throughout the day today I will initiate formal physical therapy tomorrow. Admission and Anticipated Discharge Date Admission Date: July 10, 2023 Subjective Patient states headaches and neck pain markedly improved. Denies any leg pain but back pain controlled. Physical Exam Physical Exam: Patient is in bed appears comfortable skin strength testing. Results & Data Vital Signs (Past 12 Hours) Vital Signs Temp Pulse Resp BP Pulse Ox O2 Del Method 07/19/23 07:23 36.3 C L 105 H 18 159/96 H 95 Room Air 07/19/23 04:00 36.9 C 90 18 143/89 H 96 Room Air
[2023-07-19] MEDS: HYDROmorphone INJ 0.5 MG/0.5 ML SYR IV PRN (14:26)
[2023-07-19] MEDS: DOCUSATE SODIUM/SENNA 50/8.6MG TAB PO SCH (19:26)
[2023-07-20] MEDS: HYDROmorphone INJ 1 MG/ML SYRINGE IV PRN ×2 (00:09→06:58)
[2023-07-20] MEDS: oxyCODONE HCL IR 5 MG TAB (IMMEDIATE RELEASE) PO PRN ×3 (03:41→18:05)
[2023-07-20] MEDS: SODIUM CHLORIDE 0.9% 1,000 ML IV SCH ×3 (03:44→23:48)
--- NOTE | 2023-07-20 16:08 | Orthopedic Progress Note ---
Date of Service July 20, 2023 Assessment & Plan (1) Neurogenic claudication due to lumbar spinal stenosis: Plan: At this time we will initiate physical therapy monitor his progress over the next day or so and hopefully discharge home this weekend. Admission and Anticipated Discharge Date Admission Date: July 10, 2023 Subjective Back pain controlled. Denies any headaches or neck pain. Physical Exam Physical Exam: On exam is in the chair at the bedside. Is comfortable. Dressings in place and dry. Results & Data Vital Signs (Past 12 Hours) Vital Signs Temp Pulse Resp BP Pulse Ox O2 Del Method 07/20/23 14:54 36.6 C 85 16 123/75 94 Room Air 07/20/23 08:21 36.8 C 100 H 16 127/77 94 Room Air
[2023-07-20] MEDS: DOCUSATE SODIUM/SENNA 50/8.6MG TAB PO SCH (19:50)
[2023-07-21] MEDS: oxyCODONE HCL IR 5 MG TAB (IMMEDIATE RELEASE) PO PRN ×4 (02:10→22:09)
[2023-07-21] MEDS: SODIUM CHLORIDE 0.9% 1,000 ML IV SCH ×2 (09:57→19:42)
--- NOTE | 2023-07-21 12:23 | Orthopedic Progress Note ---
Date of Service July 21, 2023 Assessment & Plan (1) Neurogenic claudication due to lumbar spinal stenosis: Plan: At this time we will have him return to bed and maintain bedrest for at least 24 hours to see if this will resolve on its own. If he continues to have difficulty and evidence of CSF leak we will have to repeat I&D and repair. Admission and Anticipated Discharge Date Admission Date: July 10, 2023 Subjective Unfortunately patient started experiencing cervicalgia and headaches this morning. Physical Exam Physical Exam: He is sitting in the chair at the bedside. He is neurologically intact. Results & Data Vital Signs (Past 12 Hours) Vital Signs Temp Pulse Resp BP Pulse Ox O2 Del Method 07/21/23 08:49 110/77 07/21/23 07:31 37.1 C 93 H 18 99/65 L 93 Room Air
[2023-07-21] MEDS: DOCUSATE SODIUM/SENNA 50/8.6MG TAB PO SCH (19:42)
[2023-07-22] MEDS: ACETAMINOPHEN 500 MG TAB PO PRN (01:55)
[2023-07-22] MEDS: SODIUM CHLORIDE 0.9% 1,000 ML IV SCH ×3 (05:14→23:36)
--- NOTE | 2023-07-22 10:18 | Orthopedic Progress Note ---
Date of Service July 22, 2023 Assessment & Plan (1) Neurogenic claudication due to lumbar spinal stenosis: Plan: At this time he has not been in bed for close to 24 hours without resolution of his neck and head pain. Concerned that he has reestablished a CSF leak. We will make him n.p.o. after midnight and plan for exploration I&D tomorrow of the lumbar spine Admission and Anticipated Discharge Date Admission Date: July 10, 2023 Subjective Patient still complaining of neck and head pain. This despite bedrest for the past 12 hours. Denies any significant back pain and has no leg pain. Physical Exam Physical Exam: Patient is supine in bed. He is neurologically intact. Results & Data Vital Signs (Past 12 Hours) Vital Signs Temp Pulse Resp BP Pulse Ox O2 Del Method 07/22/23 06:19 36.7 C 87 18 116/74 96 Room Air
[2023-07-22] MEDS: oxyCODONE HCL IR 5 MG TAB (IMMEDIATE RELEASE) PO PRN (18:41)
[2023-07-22] MEDS: DOCUSATE SODIUM/SENNA 50/8.6MG TAB PO SCH (19:22)
[2023-07-22] MEDS: HYDROmorphone INJ 1 MG/ML SYRINGE IV PRN (23:33)
[2023-07-23] MEDS: HYDROmorphone INJ 1 MG/ML SYRINGE IV PRN ×10 (04:00→19:19)
[2023-07-23] MEDS ORDERED: ceFAZolin 330 MG/ML 1 GM VIAL ONE ×3 (07:02→08:59)
[2023-07-23] MEDS ORDERED: BUPIVACAINE/EPINEPHRINE 0.25% 1:200,000 30 ML VIAL ONE (07:02)
--- NOTE | 2023-07-23 07:46 | Anesthesiology Consultation ---
Date of Service July 23, 2023 Assessment & Plan (1) Encounter for pre-operative examination: Chart Review Chart Review: Acceptable Risk for Surgery History Surgery Operation Date: 07/10/23 11:05 Proposed Procedures p L5-S1 Decompression and Fusion, Spinal Cord Monitoring - John Shirley DO Operation Date: 07/18/23 10:50 Proposed Procedures p Incision and Drainage Lumbar - John Shirley DO Operation Date: 07/23/23 08:00 Proposed Procedures p Incision and Drainage Lumbar - John Shirley DO Height/Weight Height: 6 ft 1 in Weight: 78.3 kg Allergies Allergy/AdvReac Type Severity Reaction Status Date / Time No Known Allergies Allergy Verified 06/20/23 13:41 Medications Home Medications Medication Instructions Recorded Confirmed Last Taken acetaminophen 325 mg tablet 325 mg PO QID PRN Pain 06/20/23 07/10/23 Unknown (Tylenol) ibuprofen 200 mg tablet 200 mg PO Q6H PRN Pain 06/20/23 07/10/23 Unknown omeprazole 20 mg capsule,delayed 20 mg PO QAM PRN Heartburn 06/20/23 07/10/23 07/09/23 21:00 release oxycodone 5 mg tablet 5 mg PO Q6H PRN pain #30 tabs 07/11/23 Unknown tramadol 50 mg tablet 50 mg PO Q6H PRN pain, moderate 07/11/23 Unknown #30 tabs Active Medications Generic Name Dose Route Start Last Admin Trade Name Freq PRN Reason Stop Dose Admin Acetaminophen 1,000 mg 07/10/23 14:14 07/22/23 01:55 Acetaminophen 500 Mg Tab PO 08/09/23 14:13 1,000 mg Q8H PRN Administration MILD Pain Scale 1,2,3 & Pre PT Diphenhydramine HCl 25 mg 07/10/23 14:14 07/17/23 21:31 Diphenhydramine Capsule 25 Mg Cap PO 08/09/23 14:13 25 mg Q6H PRN Administration Allergic Rhinitis/Insomnia Hydromorphone HCl 0.5 mg 07/10/23 14:14 07/19/23 14:26 Hydromorphone Inj 0.5 Mg/0.5 Ml Syr IV 07/24/23 14:13 0.5 mg Q3H PRN Administration MODERATE Pain (Scale 4,5,6) & Pre PT Hydromorphone HCl 1 mg 07/10/23 14:14 07/23/23 04:00 Hydromorphone Inj 1 Mg/Ml Syringe IV 07/24/23 14:13 1 mg Q3H PRN Administration SEVERE Pain (Scale 7,8,9,10) Hydroxyzine HCl 25 mg 07/10/23 14:14 07/19/23 01:15 Hydroxyzine Hcl 25 Mg Tab PO 08/09/23 14:13 25 mg Q8H PRN Administration Anxiety Sodium Chloride 1,000 mls @ 100 mls/hr 07/12/23 18:15 07/23/23 07:19 Nss IV 08/11/23 18:14 Infused .Q10H DACIA Infusion Lactated Ringer's 1,000 mls @ 0 mls/hr 07/18/23 14:00 07/18/23 14:50 Lr IV 08/17/23 13:59 Infused .Q0M DACIA Infusion KVO Lorazepam 0.5 mg 07/10/23 14:14 07/17/23 21:31 Lorazepam 0.5 Mg Tab PO 08/09/23 14:13 0.5 mg Q8H PRN Administration Sedation/Anxiety Ondansetron HCl 4 mg 07/10/23 14:14 07/13/23 10:11 Ondansetron Inj 2 Mg/Ml 2 Ml Vial IV 08/09/23 14:13 4 mg Q6H PRN Administration Nausea &/or Vomiting Oxycodone HCl 5 - 10 mg 07/10/23 14:14 07/22/23 18:41 Oxycodone Hcl Ir 5 Mg Tab (Immediate Release) PO 07/24/23 14:13 10 mg Q4H PRN Administration Pain & Pre PT Senna/Docusate Sodium 2 tab 07/10/23 21:00 07/22/23 19:22 Docusate Sodium/Senna 50/8.6mg Tab PO 08/09/23 20:59 Not Given HS DACIA Tramadol HCl 50 - 100 mg 07/10/23 14:14 07/19/23 01:15 Tramadol Hcl 50 Mg Tablet PO 08/09/23 14:13 100 mg Q4H PRN Administration Moderate-Severe pain & Pre PT NPO Date Last Intake of Fluids: 07/22/23 Time Last Intake of Fluids: 22:00 Last Intake of Fluids Comment: 4 oz water Date Last Intake of Solids: 07/22/23 Time Last Intake of Solids: 17:00 Past Medical History Medical History Cerebral palsy lives alone, 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 speech can be difficult to understand, patient can read and sign his name, but does have difficult time writing. Chronic back pain Degenerative disc disease Heartburn occasional, controlled, stable per pt History of COVID-19 2020 - mild cold symptoms - denies hospitalization - symptoms resolved Sleep apnea hx of UPPP surgery, no machine currently. Spinal stenosis Past Family History Family History Other No family history of adverse response to anesthesia Past Surgical History Surgical History (Updated 07/23/23 @ 07:45 by Spencer Pathak MD) History of lumbar spinal fusion History of myringotomy BMT S/P epidural steroid injection S/P tendon repair bilateral knee and ankle tendons lengthened. (1992) Status post uvulopalatopharyngoplasty (~2017) Social History Smoking Status: Never smoker Do You Dip or Chew Tobacco: No Hx Alcohol Use: Yes Alcohol type: hard liquor alcohol intake frequency: a few times a week Hx Substance Use: No substance use type: does not use Physical Exam Vital Signs Last Vital Signs Temp 36.9 C 07/23/23 06:55 Pulse 93 H 07/23/23 06:55 Resp 16 07/23/23 06:55 BP 115/76 07/23/23 06:55 Pulse Ox 95 07/23/23 06:55 O2 Del Method Room Air 07/23/23 06:55 O2 Flow Rate 8 07/18/23 15:55 Testing Laboratory Results 07/11/23 05:26 07/11/23 05:26
[2023-07-23] MEDS ORDERED: ceFAZolin 2000MG 2,000 MG/15 ML SYR IV ONE (07:48)
--- NOTE | 2023-07-23 07:57 | History & Physical Bridge Note ---
Date of Service July 23, 2023 History & Physical Bridge Note I have examined the patient, reviewed the History & Physical and in the interval since the performance of the History & Physical I have noted the following changes of clinical significance: no changes noted Patient continues to have evidence of CSF leak and I am recommending irrigation and debridement lumbar spine
[2023-07-23] MEDS ORDERED: PROMETHAZINE HCL 6.25 MG in SODIUM CHLORIDE 0.9% 50 ML IV PRN (08:12)
[2023-07-23] MEDS ORDERED: ATROPINE SULFATE 0.1 MG/ML 10ML SYR IV PRN (08:12)
[2023-07-23] MEDS ORDERED: ONDANSETRON INJ 2 MG/ML 2 ML VIAL IV PRN (08:12)
[2023-07-23] MEDS ORDERED: fentaNYL citrate PF 100 MCG/2 ML VIAL ONE (08:56)
[2023-07-23] MEDS ORDERED: MIDAZOLAM HCL 1 MG/ML 2ML VIAL ONE (08:56)
[2023-07-23] MEDS ORDERED: ROCURONIUM BROMIDE 10 MG/ML 5 ML VIAL IV ONE (08:58)
[2023-07-23] MEDS ORDERED: LIDOCAINE 2% 2 ML VIAL/AMP(20MG/ML) INFIL ONE (08:58)
[2023-07-23] MEDS ORDERED: PROPOFOL IV EMULSION 10 MG/ML 20 ML VIAL IV ONE ×2 (08:58→09:32)
[2023-07-23] MEDS ORDERED: PHENYLEPHRINE HCL 10 MG/ML VIAL ONE (08:58)
[2023-07-23] MEDS ORDERED: NEOSTIGMINE METHYLSULFATE 1 MG/ML 10ML VIAL ONE (09:23)
[2023-07-23] MEDS ORDERED: ONDANSETRON INJ 2 MG/ML 2 ML VIAL ONE (09:23)
[2023-07-23] MEDS ORDERED: GLYCOPYRROLATE 0.2 MG/ML VIAL ONE (09:23)
--- NOTE | 2023-07-23 09:35 | Operative Report ---
Post Operative Report Pre & Post Diagnosis Operation Date: 07/23/23 08:45 Pre-Op Diagnosis: Persistence Cerebrospinal fluid leak Post-Op Diagnosis: Persistence Cerebrospinal fluid leak I identified the patient and participated in the time-out.: Yes Procedure Operation Date: 07/23/23 08:45 Actual Procedures Irrigation drainage lumbar spine with repair persistent CSF leak Surgeon John Shirley DO Transcription Manager Lamar Pérez Estimated Blood Loss 25 Findings Consistent with Post-Op Diagnosis Specimens None Indications This is a 42-year-old male presents with repeat headache approximately postop day #2 after primary repair of CSF leak. Subsequently where for reexploration and repair. Description of Procedure Patient was met with preoperatively Case discussed all questions addressed. At that point patient taken back to operative suite and after undergoing intubation placed in a prone position on the [place] table top of the Edilberto frame. All bony promises well-padded eyes inspected to ensure no external pressure placed upon the. This point lumbar spine was prepped draped sterile fashion. Utilizing the previous incision site sharp section formed through the skin down to and exposing the fascial layer. The fascia was released and significant mo unt of serosanguineous fluid identified. I irrigated this decision with antibiotic saline and then explored the dural repair. There is continued very modest appreciable CSF leak through the thinned posterior aspect of the dura. I then placed 3 more interrupted Nurolon sutures across the thin dura reapproximating the edges. Valsalva maneuver was performed and no gross continued fluid leak was appreciated. Then placed a DuraGen patch over the repair followed by DuraSeal. The incision was then closed with 1 Vicryl fascia 2-0 Vicryl subcutaneously and 4 Monocryl for final skin closure. Steri-Strips sterile dressing placed. Patient waken taken to PACU stable condition. Please note Lamar Gant was present at the entire procedure involved in patient positioning complex portion of the surgery and final skin closure. I attest to the content of the Intraoperative Record and any orders documented therein. Any exceptions are noted below.
[2023-07-23] MEDS ORDERED: HYDROmorphone INJ 1 MG/ML SYRINGE ONE ×2 (10:20→10:43)
[2023-07-23] MEDS: SODIUM CHLORIDE 0.9% 1,000 ML IV SCH ×2 (12:25→19:20)
--- NOTE | 2023-07-23 12:26 | Anesthesiology Progress Note ---
Date of Service July 23, 2023 Anesthesia Post Procedure Vital Signs Vital Signs: Temp Pulse Pulse Resp BP BP Pulse Ox 07/23/23 12:14 36.6 C 82 16 127/73 93 07/23/23 11:45 36.6 C 87 16 110/75 96 07/23/23 11:15 36.7 C 70 16 114/76 93 07/23/23 11:10 76 17 108/70 98 07/23/23 11:00 72 18 108/74 97 07/23/23 10:50 74 17 111/74 92 07/23/23 10:40 36.9 C 68 15 112/76 94 07/23/23 10:30 63 16 122/86 92 07/23/23 10:20 78 15 129/80 95 07/23/23 10:10 73 15 119/79 99 07/23/23 10:00 36 C L 79 14 118/88 98 07/23/23 06:55 36.9 C 93 H 16 115/76 95 07/22/23 19:20 37.1 C 89 16 142/74 H 95 07/22/23 14:49 37.1 C 98 H 16 122/72 96 O2 Del Method O2 Flow Rate 07/23/23 12:14 Room Air 07/23/23 11:45 Room Air 07/23/23 11:15 Room Air 07/23/23 11:10 Room Air 07/23/23 11:00 Room Air 07/23/23 10:50 Room Air 07/23/23 10:40 Room Air 07/23/23 10:30 Room Air 07/23/23 10:20 Room Air 07/23/23 10:10 Oxymask 4 07/23/23 10:00 Oxymask 4 07/23/23 06:55 Room Air 07/22/23 19:20 Room Air 07/22/23 14:49 Room Air Pain Intensity Medial Back: Pain Intensity: 5 Lower Back: Pain Intensity: 5 Head: Pain Intensity: 7 Transfer of Care Handoff Completed per policy Notes Mental Status: alert / awake / arousable Patient Amnestic to Procedure: Yes Nausea / Vomiting: adequately controlled Pain: adequately controlled Airway Patency, RR, SpO2: stable & adequate BP & HR: stable & adequate Hydration State: stable & adequate Anesthetic Complications: no major complications apparent
[2023-07-23] MEDS: LORazepam 0.5 MG TAB PO PRN (12:28)
[2023-07-23] MEDS: oxyCODONE HCL IR 5 MG TAB (IMMEDIATE RELEASE) PO PRN ×2 (15:45→21:14)
[2023-07-23] MEDS: ceFAZolin 2000MG 2,000 MG/15 ML SYR IV SCH (17:52)
[2023-07-23] MEDS: DOCUSATE SODIUM/SENNA 50/8.6MG TAB PO SCH (19:19)
[2023-07-24] MEDS: ceFAZolin 2000MG 2,000 MG/15 ML SYR IV SCH ×2 (01:07→09:39)
[2023-07-24] MEDS: HYDROmorphone INJ 1 MG/ML SYRINGE IV PRN ×2 (01:07→12:35)
[2023-07-24] MEDS: SODIUM CHLORIDE 0.9% 1,000 ML IV SCH ×2 (04:24→14:35)
[2023-07-24] MEDS: oxyCODONE HCL IR 5 MG TAB (IMMEDIATE RELEASE) PO PRN (04:24)
[2023-07-24] MEDS: ACETAMINOPHEN 500 MG TAB PO PRN (07:06)
[2023-07-24] MEDS: LORazepam 0.5 MG TAB PO PRN ×2 (07:30→20:18)
[2023-07-24] MEDS: traMADol HCL 50 MG TABLET PO PRN ×3 (09:35→20:49)
--- NOTE | 2023-07-24 10:12 | Orthopedic Progress Note ---
Date of Service July 24, 2023 Assessment & Plan (1) History of lumbar spinal fusion: Plan: Maikel is postoperative day 1 status post repeat durotomy and postop day 14 status post lumbar fusion. Will continue head of bed flat today. We will reevaluate tomorrow. May consider setting him up a little bit tomorrow. Maintain [place] today. DVT prophylaxis is in the form of teds and SCDs. Continue with pain control. We will consider starting physical therapy on Monday pending on the next 24 to 48 hours. Admission and Anticipated Discharge Date Admission Date: July 10, 2023 Subjective Maikel is postoperative day 1 status post second durotomy repair. He has some mild anterior chest pain. It is better with medication this morning. Denies any shortness of breath nausea, headache, neck pain. No radicular leg pain. Review of Systems Review of Systems: All systems reviewed & are unremarkable except as noted in HPI & below Physical Exam Physical Exam: He is seen and examined with Dr. Shirley Alert and oriented x3 No acute distress Strength is intact bilateral lower EXTR Calf soft nontender bilateral lower extremities Results & Data Vital Signs (Past 12 Hours) Vital Signs Temp Pulse Resp BP Pulse Ox O2 Del Method 07/24/23 07:08 36.4 C L 99 H 18 113/75 96 Room Air 07/24/23 04:01 36.5 C 99 H 16 108/70 97 Room Air 07/24/23 00:05 36.7 C 93 H 16 110/73 94 Room Air
[2023-07-24] MEDS: DOCUSATE SODIUM/SENNA 50/8.6MG TAB PO SCH (20:18)
[2023-07-25] MEDS: SODIUM CHLORIDE 0.9% 1,000 ML IV SCH ×3 (00:33→20:04)
[2023-07-25] MEDS: traMADol HCL 50 MG TABLET PO PRN ×4 (02:51→20:08)
--- NOTE | 2023-07-25 08:53 | Orthopedic Progress Note ---
Date of Service July 25, 2023 Assessment & Plan (1) Neurogenic claudication due to lumbar spinal stenosis: Plan: Patient is progressing appropriate. We will maintain bedrest today but he may sit up as tolerated. If he continues to improve we will begin transfers to chair and ambulation tomorrow. Admission and Anticipated Discharge Date Admission Date: July 10, 2023 Subjective Back pain controlled. Denies any leg pain. Sleeping well. Has no headaches or nuchal discomfort Physical Exam Physical Exam: On exam is constricted testing. Is able to sit up in bed comfortably. Results & Data Vital Signs (Past 12 Hours) Vital Signs Temp Pulse Resp BP BP Pulse Ox O2 Del Method 07/25/23 07:45 37.2 C 101 H 16 104/66 97 Room Air 07/24/23 21:54 36.9 C 97 H 18 122/77 97 Room Air
[2023-07-25] MEDS: DOCUSATE SODIUM/SENNA 50/8.6MG TAB PO SCH (20:04)
[2023-07-26] MEDS: traMADol HCL 50 MG TABLET PO PRN ×4 (03:45→21:04)
[2023-07-26] MEDS: SODIUM CHLORIDE 0.9% 1,000 ML IV SCH (05:57)
--- NOTE | 2023-07-26 16:00 | Orthopedic Progress Note ---
Date of Service July 26, 2023 Assessment & Plan (1) Neurogenic claudication due to lumbar spinal stenosis: Plan: At this time we will continue bed to chair and ambulation in the room. If continues to improve we will possibly discharge home tomorrow. Admission and Anticipated Discharge Date Admission Date: July 10, 2023 Subjective Patient denies any headaches or nuchal pain. He is tolerating standing and sitting in chair. Physical Exam Physical Exam: On exam is in the chair at the bedside. Is constricted testing. Appears comfortable. Results & Data Vital Signs (Past 12 Hours) Vital Signs Temp Pulse Resp BP Pulse Ox O2 Del Method 07/26/23 15:42 36.9 C 85 16 119/68 93 Room Air 07/26/23 08:07 36.6 C 84 16 113/76 96 Room Air
--- NOTE | 2023-07-26 17:10 | XRay Report ---
XR lumbar spine 2-3V HISTORY: 43 years-old Male postop status post lumbar spine surgery COMPARISON: 07/10/2023 TECHNIQUE: 3 views of the lumbar spine FINDINGS: Lumbar dextroscoliosis. No acute fracture identified. Posterior and bilateral aurelio and screw fusion garcia rdware with discectomy noted at L5-S1. Small amount of deep tissue air within the operative bed. The hardware appears intact. IMPRESSION: 1. No acute fracture or subluxation. 2. Posterior interbody aurelio and screw fusion hardware with discectomy at L5-S1. ACT 112: Negative or not required by law. The above report was generated using voice recognition software. It may contain grammatical, syntax o r spelling errors. Electronically signed by: Otoniel Dixon M.D. 07/26/2023 5:08 PM
[2023-07-26] MEDS: DOCUSATE SODIUM/SENNA 50/8.6MG TAB PO SCH (21:04)
[2023-07-26] MEDS: LORazepam 0.5 MG TAB PO PRN (21:06)
[2023-07-27] MEDS: traMADol HCL 50 MG TABLET PO PRN ×3 (07:33→20:58)
--- NOTE | 2023-07-27 09:46 | Orthopedic Progress Note ---
Date of Service July 27, 2023 Assessment & Plan (1) Neurogenic claudication due to lumbar spinal stenosis: Plan: This time we will continue physical therapy and plan for discharge tomorrow. Admission and Anticipated Discharge Date Admission Date: July 10, 2023 Subjective Patient tolerated activity yesterday. Denies any headaches neck pain or nausea vomiting. Physical Exam Physical Exam: On exam is constricted testing. In dressing is clean dry and intact. Results & Data Vital Signs (Past 12 Hours) Vital Signs Temp Pulse Resp BP Pulse Ox O2 Del Method 07/27/23 07:28 36.4 C L 103 H 18 111/64 95 Room Air
[2023-07-27] MEDS: LORazepam 0.5 MG TAB PO PRN (20:58)
[2023-07-28] MEDS: DOCUSATE SODIUM/SENNA 50/8.6MG TAB PO SCH (06:07)
[2023-07-28] MEDS: traMADol HCL 50 MG TABLET PO PRN (08:25)
--- NOTE | 2023-07-28 09:44 | Discharge Summary ---
Date of Service July 28, 2023 Admission HPI Per Admitting Provider This is a 43-year-old male who presents with chronic persistent back and leg pain after failing extensive course of nonoperative care is here for surgical intervention. Principal Diagnosis Lumbar spinal stenosis with neurogenic claudication Discharge Data Allergies Allergy/AdvReac Type Severity Reaction Status Date / Time No Known Allergies Allergy Verified 06/20/23 13:41 Procedures Performed Operation Date: 07/23/23 08:45 Actual Procedures p Incision and Drainage Lumbar - John Shirley DO Ordered Studies 07/10/23 11:05 [place] lumbar spine 2-3V Routine Hospital Course (1) Neurogenic claudication due to lumbar spinal stenosis: Patient underwent lumbar decompression fusion trial as well as negative orthopedic floor. Unfortunately postop day #2 he began having neck and head pain. We underwent several days of bedrest but it was unresolved subsequently underwent exploration and found to have a CSF leak. This was repaired. We will maintain another few days of bedrest began physical therapy but the symptoms returned. He underwent a second exploration and repair of his CSF leak. He tolerated this well was up and ambulating no return of headaches or neck pain and subsequently discharged home. Discharge orders instructions from the chart for further review. Total Time Total Time Spent Total Time Spent (In Minutes): 20 minutes Discharge Plan Discharge Items Patient Disposition: Home - Home Health Services Reason For Visit: Thoracolumbar and Lumbosacral Intervertebral Disc Discharge Diagnosis: Lumbar spinal stenosis with radiculopathy Activity: As commented below Non-emergency contact: Primary Care Provider Call non-emergency contact if: you have any medication questions Follow-up/Referrals: GERONIMO DURAN [Other] Diet: Regular Addtl Attending Provider Instructions: ACTIVITY RECOMMENDATIONS: SELF CARE INSTRUCTIONS AFTER THORACIC/LUMBAR FUSIONS 1. You may walk to your tolerance. It is good exercise for your legs and back. Expect some back and intermittent leg aches and pains. 2. You may perform "counter-top" level activities (make a sandwich, vinay with a project, etc.). 3. No bending or lifting of more than 10 pounds or back twisting of any nature (roll like a log when turning in bed). 4. You may ride in a car for 20-30 minutes at a time. No driving until after your first visit with your doctor. 5. Frequent changes of position and restricting sitting to 30 minutes at a time will help limit the amount of back spasms and stiffness you may experience. 6. You may discontinue the use of ambulatory aids (cane, crutches, etc.) once your strength and confidence allow. 7. You may production administrator the shower and let water strike your incision when you arrive home at least once daily. Do not take a tub bath, sit in a hot tub or go into a swimming pool until after your first recheck in the office. SPECIAL CARE INSTRUCTIONS: VERY IMPORTANT TO READ AND REVIEW A. Your surgical incision has been closed with a cosmetic suture under the skin that will dissolve in about 6 weeks. In 14 days, you can use a pair of clean scissors and cut the suture that is left outside of the skin at the ends of your incision. 1. The small skin tapes can be removed 7 days after surgery if they have not fallen off by that point. 2. You may keep the wound open to air as much as possible to promote healing after post-op day number 5 unless told otherwise by your doctor. 3. If you think the wound looks like it is becoming infected (redness or worsening drainage) and/or you are experiencing fever, chill or worsening back pain and muscle spasms, contact the office so that we may evaluate you as soon as possible. B. Complications are uncommon, but please contact us if you have any signs or symptoms of: 1. wound infection (fever higher than 102.5 degrees F, redness, separation of wound, drainage, or increasing pain from the incision) 2. blood clots in legs (pain, swelling, redness and warmth in legs) 3. urinary tract infection (fever higher than 102.5 degrees F, burning upon urination or increased frequency of urination) 4. nerve problems (inability to walk on your toes or heels, numbness, loss of bowel or bladder control) 5. any other symptoms that concern you C. Please call the office at if you have any concerns or questions about your operation or recovery. D. No smoking! Smoking drastically decreases the chance of a solid fusion. E. Do not take any anti-inflammatory medications (Indocin, Advil, Motrin, Aspirin, Naprosyn, etc.) as these may inhibit the chance of a solid fusion. Tylenol is okay to take for pain. MANAGING PAIN AFTER SPINAL SURGERY 1. Narcotic medication is intended for short-term use and will be provided for surgical pain. Surgical pain usually lasts for a period of 4-6 weeks. Narcotic medication includes Percocet, Vicodin, Darvocet, Tylenol #3 or Lortab. 2. Longer-term pain is more appropriately treated with non-narcotic medication such as Tylenol ES. 3. Muscle spasm is not appropriately treated with narcotics. Muscle relaxers such as Soma, Flexeril or Skelaxin can be used along with Tylenol ES. 4. Remember that we all live with some "aches and pains". This is not unusual or uncommon after an injury or as we get older. a. Back pain is expected and may include muscle spasms for 4 to 6 weeks after surgery. The pain should gradually improve. If the pain worsens for no apparent reason, please contact the office. b. Intermittent leg pain may also be experienced and should not be concerned about unless it worsens for no apparent reason. If so, please contact the office. 5. We will provide appropriate medication within the normal guidelines of their prescribed use. We will also be very cautious and aware of potential abuse and extended duration of patients' medication needs. a. Pain medications are for your comfort and to assist with sleep and rest so that the tissue can heal. They are not provided in order to return to normal activity and should not be used through the day. To do so or worsening pain at night can result from ongoing tissue damage and development of tolerance to the prescribed medicine. 6. Please allow 2-3 days to process refills. Prescriptions will not be mailed but must be picked up at the office. FOLLOW UP VISIT: Keep your scheduled follow-up appointment. Any questions, please call the office at . Pending Studies at Discharge: No Stand-Alone Forms: My [facility], Smoking Cessation Medications and DC Order Prescriptions: New tramadol 50 mg tablet 50 mg PO Q6H PRN (Reason: pain, moderate) Qty: 30 0RF oxycodone 5 mg tablet 5 mg PO Q6H PRN (Reason: pain) Qty: 30 0RF Continued omeprazole 20 mg Capsule,Delayed Release(Dr/Ec) 20 mg PO QAM PRN (Reason: Heartburn) acetaminophen [Tylenol] 325 mg Tablet 325 mg PO QID PRN (Reason: Pain) ibuprofen 200 mg Tablet 200 mg PO Q6H PRN (Reason: Pain) Discharge Orders: Discharge Order (Routine); Ordered 07/28/23 Ordered By: John Shirley Admission Data Admit Date/Time: 07/10/23 12:32 Attending Provider: John Shirley Admit Provider: John Shirley Primary Care Provider: GERONIMO DURAN Other Providers: [facility]
--- NOTE | 2023-07-31 08:43 | Coding Query ---
CODING QUERY To promote full compliance with coding requirements relating to patient care, provider participation is requested in all cases of landfill gas collection operator uncertainty. Please assist us with the question(s) below: Coding Question(s): Pt admitted with lumbar spinal stenosis/ claudication. Postop Spinal fusion developed headache and diagnosed with CSF leak. Pt taken to the OR postop for repair of the CSF leak. 07/24 Ortho note mentioned durotomy. Please check below the phrase that describes the durotomy/cerebrospinal fluid leak. . Thanks for your help ! VERÓNICA Sheriff [facility] Physician's Response(s): x the durotomy/ postop cerebrospinal fluid leak was incidental to the procedure the durotomy/postop cerebrospinal fluid leak was a complication of the procedure Other: Please document: Principal Diagnosis: "that condition established after study, to be chiefly responsible for occasioning the admission of the patient to the hospital for care." Co-Existing Principal Diagnosis: "when two or more diagnoses equally meet the criteria for principal diagnosis as determined by the circumstances of admission, diagnostic work up, and/or therapy provided, and the Alphabetic Index, Tabular List, or another coding guideline does not provide sequencing direction, any one of the diagnoses may be sequenced first." "When the physician has documented what appears to be a current diagnosis in the body of the record, but has not included the diagnosis in the final diagnostic statement, the physician should be asked whether the diagnosis should be added." (Source Coding Clinic 2 QTR90. p3-4) MEL
== END 2023-07-28 15:06 | disposition home health service (06) | DRG 454 ==
LOC: ASU 08:50 → 3E 12:32

== ENCOUNTER 2025-01-31 06:18 | Inpatient (IN) ==
--- NOTE | 2025-01-22 16:00 | Anesthesiology Consultation ---
Date of Service January 22, 2025 Assessment & Plan (1) Encounter for pre-operative examination: - medical clearance 01/24/25: "...preoperative consultation...L2-L3 decompression and fusion...0.4% (95% CI: 0.1-0.8)...RCRI score is low...acceptable risk for planned procedure. No contraindications to planned surgery..." - Per party planner on 01/22/25: No known infectious disease contacts, current infectious disease symptoms in past 10 days or COVID positive test result in the past 30 days. Chart Review Chart Review: Acceptable Risk for Surgery and Patient NOT seen in Pre Admission Testing History Surgery Operation Date: 01/31/25 12:55 Proposed Procedures p L2-L3 Decompression and Fusion with Spinal Cord Monitoring - John Shirley DO Height/Weight Height: 6 ft 1 in Weight: 68.946 kg Allergies Allergy/AdvReac Type Severity Reaction Status Date / Time No Known Allergies Allergy Verified 01/22/25 15:04 Medications Home Medications Medication Instructions Recorded Confirmed Last Taken acetaminophen 325 mg tablet 325 mg PO QID PRN Pain 06/20/23 01/22/25 Unknown (Tylenol) ibuprofen 200 mg tablet 200 mg PO Q6H PRN Pain 06/20/23 01/22/25 Unknown omeprazole 20 mg capsule,delayed 20 mg PO QAM PRN Heartburn 06/20/23 01/22/25 07/09/23 21:00 release cholecalciferol (vitamin D3) 125 125 mcg PO BID 01/22/25 01/22/25 Unknown mcg (5,000 unit) tablet (Vitamin D3) Past Medical History Medical History Cerebral palsy lives alone, ambulates and 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 speech can be difficult to understand, patient can read and sign his name, but does have difficult time writing. Chronic back pain Degenerative disc disease Heartburn occasional, controlled, stable per pt History of COVID-19 2020 - mild cold symptoms - denies hospitalization - symptoms resolved Sleep apnea hx of UPPP surgery, no machine currently. Spinal stenosis Past Family History Family History Other No family history of adverse response to anesthesia Past Surgical History Surgical History History of incision and drainage x2--07/18/23 and 07/23/23 @ [facility] on lumbar spine History of lumbar spinal fusion (07/10/23) History of myringotomy BMT S/P epidural steroid injection S/P tendon repair bilateral knee and ankle tendons lengthened. (1992) Status post uvulopalatopharyngoplasty (~2017) Social History Smoking Status: Never smoker Do You Dip or Chew Tobacco: No Hx Alcohol Use: Yes Alcohol type: hard liquor alcohol intake frequency: a few times a month Hx Substance Use: No substance use type: does not use Lab Results Anesthesia Preop Results Results Anesthesia Widget: WBC 4.56 K/ul (4.8-10.8) L 01/09/25 Hgb 16.2 g/dl (14.0-18.0) 01/09/25 Hct 45.5 % (42.0-52.0) 01/09/25 Plt 246 K/uL (130-400) 01/09/25 Na 137 mmol/L (136-145) 01/09/25 K 3.8 mmol/L (3.5-5.1) 01/09/25 Cl 102 mmol/L (98-107) 01/09/25 CO2 29 mmol/L (21-32) 01/09/25 BUN 12 mg/dl (6-23) 01/09/25 Creat 0.93 mg/dl (0.6-1.4) 01/09/25 Glucose Level 117 mg/dl (70-99(Fasting)) H 01/09/25 PT 10.5 Seconds (9.0-12.0) 01/09/25 PTT 26 Seconds (21-31) 01/09/25 INR 1.0 (0.9-1.1) 01/09/25 Urine Color Yellow 01/09/25 Urine Appearance Clear (Clear) 01/09/25 Urine pH 6.5 (4.5-7.5) 01/09/25 Urine Specific [place] 1.016 (1.000-1.030) 01/09/25 Urine Protein Negative (Negative) 01/09/25 Urine Glucose (UA) Negative (Negative) 01/09/25 Urine Ketones Negative (Negative) 01/09/25 Urine Blood Negative (Negative) 01/09/25 Urine Nitrite Negative (Negative) 01/09/25 Urine Bilirubin Negative (Negative) 01/09/25 Urine Urobilinogen Negative (Negative) 01/09/25 Urine Leukocyte Esterase Negative (Negative) 01/09/25 Blood Type O Positive 01/09/25 Antibody Screen NEGATIVE 01/09/25 Testing Electrocardiogram Date: 01/09/25 NSR, rate 84 bpm Chest X-Ray Date: 01/09/25 No acute findings.
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
--- OUTSIDE RECORDS SUMMARY | 2025-01-31 06:28 | External Medical Summary | Summary of Care ---
Author Name Unknown Organization [facility] Address [address] [place] [address] Care Team Providers Care Offset Lithographic Press Setter Name Role Phone Tigist Mayers INSPECTOR AND ADJUSTER [employer] Primary Care Provider [phone] Reason for Visit * Reason Comments Pre-Op Exam Encounter Details Date Type Department Care Team (Late st Contact Info) Description 01/24/2025 1:00 PM EDT Office Visit [facility] Practice Department of [facility] [address] [place] [phone] Danika Schwartz, INSPECTOR AND ADJUSTER [employer] [address] [place] [id number] Preop examination (Primary Dx); Bulging lumbar disc [...] (08/09/2022): Added automatically from request for surgery [id number] Dyslipidemia 12/23/2021 Neural foraminal stenosis of lumbar spine 2021 Overview (11/23/2021): Added automatically from request for surgery [id number] Facet joint disease of lumbosacral region 2021 Spondylolisthesis of lumbar region 03/02/2021 Overview (03/02/2021): Added automatically from request for surgery [id number] Bilateral primary osteoarthritis of hip 02/02/20 21 [...] (05/21/2020): Added automatically from request for surgery [id number] Assessment & Plan (02/01/2021 10:44 AM EDT): [...] (10/04/2022): Added automatically from request for surgery [id number] Cervical facet joint syndrome 08/09/2022 03/28/2024 Overview (08/09/2022): Added automatically from request for surgery [id number] Facet joint disease of lumbosacral region 11/04/2021 03/28/2024 Overview (03/02/2021): Added automatically from request for surgery [id number] Pain in joint involving multiple sites 08/02/2019 [...] vitamins and herbal supplements including fish oil (Bovill 3s), and Marijuana/CBD products. For 3 days [...] know how we did! Provider: Danika Schwartz FINISHING OPERATOR-C Nurse: Cheryl documented in this encounter Progress [...] History of ischemic heart disease (history of LA or a positive exercise test, current complaint [...] 08/02/2019 Past Surgical History: Procedure Laterality Date IA DSTR NROLYTC AGNT PARVERTEB FCT ADDL CRVCL/THORA Left 12/07/2022 Procedure: RADIOFREQUENCY ABLATION,MEDIAL BRANCH NERVE CERVICAL ADDITIONAL LEVELS; Surgeon: Mike Lucas MD; Location: [facility] IA DSTR NROLYTC AGNT PARVERTEB FCT SNGL CRVCL/THORA Left 12/07/2022 Procedure: RADIOFREQUENCY ABLATION,MEDIAL BRANCH NERVE CERVICAL c4-5 c5-6; Surgeon: Mike Lucas MD; Location: [facility] IA DSTR NROLYTC AGNT PARVERTEB FCT SNGL LMBR/SACRAL Bilateral 02/01/2022 Procedure: RADIOFREQUENCY ABLATION,MEDIAL BRANCH NERVE LUMBAR 1L - bilateral facet levels L5-S1; Surgeon: Mike Lucas MD; Location: [facility] IA INJ DX/THER AGNT PARAVERT FACET JOINT,IMG GUIDE,LUMBAR/SAC, 1ST LEVEL Bilateral 03/18/2021 Procedure: BLOCK,FACET WITH FLUORO 1L LUMBAR L5-S1 bilateral ([id number]); Surgeon: Mike Lucas MD; Location: [facility] IA INJ DX/THER AGNT PARAVERT FACET JOINT,IMG GUIDE,LUMBAR/SAC, 1ST LEVEL Bilateral 11/04/2021 Procedure: L5-S1 facet levels bilaterally; Surgeon: Mike Lucas MD; Location: [facility] OR IA INJ DX/THER AGNT PARAVERT FACET JOINT,IMG GUIDE,LUMBAR/SAC, 1ST LEVEL Bilateral 01/17/2022 Procedure: BLOCK,MEDIAL BRANCH 1L LUMBAR; BILATERAL FACET LEVEL L5-S1 - DIAGNOSTIC 2; Surgeon: Mike Lucas MD; Location: [facility] IA INJ DX/THER AGNT PARAVERT FACET JOINT,IMG GUIDE,LUMBAR/SAC, 2ND LEVEL Bilateral 01/17/2022 Procedure: BLOCK,MEDIAL BRANCH 2L LUMBAR; UNILATERAL; Surgeon: Mike Lucas MD; Location: [facility] OR IA INJECTION,SACROILIAC JOINT Left 06/18/2020 Procedure: INJECTION SACRO ILIAC JOINT ; bilateral - highmark approved; Surgeon: Mike Lucas MD;Location: [facility] IA INJECTION,SACROILIAC JOINT Right 06/18/2020 Procedure: INJECTION SACRO ILIAC JOINT ; UNILATERAL; Surgeon: Mike Lucas MD; Location: [facility] [place] INJECTION,SACROILIAC JOINT Right 12/17/2020 Procedure: INJECTION SACRO ILIAC JOINT ; UNILATERAL right; Surgeon: Mike Lucas MD; Location: [facility] OR [place] INJECTION,SACROILIAC JOINT Left 01/11/2021 Procedure: INJECTION SACRO ILIAC JOINT ; UNILATERAL left - [facility]; Surgeon: Mike Lucas MD; Location: [facility] OR IA NJX DX/THER SBST INTRLMNR LMBR/SAC W/IMG GDN [...] vitamins and herbal supplements including fish oil (Bovill 3s), and Marijuana/CBD products. For 3 days before surgery: NO Ibuprofen (Motrin/Advil), Naproxen (Aleve) Call your surgeon's office with cold, flu, fever, or signs of infection. Patient Instructions Eat a healthy diet with adequate amounts of protein and drink plenty of water For 7 days before surgery: NO nonprescription vitamins and herbal supplements including fish oil (Bovill 3s), and Marijuana/CBD products. For 3 days [...] know how we did! Provider: Danika Schwartz FINISHING OPERATOR-C Nurse: Cheryl Author: Danika Schwartz NP 01/24/2025 [...] without myelopathy documented in this encounter Insurance [facility] [employer] P[employer] documented as of this encounter Care Teams Offset Lithographic Press Setter Relationship Specialty Start Date End Date Tigist Mayers NP [facility] [place] [id number] PCP - General FAMILY PRACTICE 08/25/21 documented as of this encounter
[2025-01-31] MEDS: CeleBREX 200 MG CAP PO SCH (06:30)
[2025-01-31] MEDS: LR 60ML/HR IV SCH (06:30)
[2025-01-31] MEDS: LACTATED RINGER'S 1,000 ML IV SCH (06:30)
[2025-01-31] MEDS: ACETAMINOPHEN 500 MG TAB PO SCH (06:30)
[2025-01-31] MEDS: GABAPENTIN 900 MG DOSE PO SCH (06:30)
[2025-01-31] MEDS ORDERED: ROCURONIUM BROMIDE 10 MG/ML 5 ML VIAL IV ONE ×2 (07:07→08:19)
[2025-01-31] MEDS ORDERED: LIDOCAINE 2% 2 ML VIAL/AMP(20MG/ML) INFIL ONE (07:07)
[2025-01-31] MEDS ORDERED: PROPOFOL IV EMULSION 10 MG/ML 20 ML VIAL IV ONE (07:07)
[2025-01-31] MEDS ORDERED: fentaNYL citrate PF 100 MCG/2 ML VIAL ONE ×2 (07:07→08:39)
[2025-01-31] MEDS ORDERED: ONDANSETRON INJ 2 MG/ML 2 ML VIAL ONE (07:07)
[2025-01-31] MEDS ORDERED: DEXAMETHASONE SOD INJ 4 MG/ML VIAL ONE (07:07)
[2025-01-31] MEDS ORDERED: MIDAZOLAM HCL 1 MG/ML 2ML VIAL ONE (07:08)
[2025-01-31] MEDS ORDERED: FLUMAZENIL 0.1 MG/1 ML 10 ML VIAL IV PRN (07:21)
[2025-01-31] MEDS ORDERED: PROMETHAZINE HCL 6.25 MG in SODIUM CHLORIDE 0.9% 50 ML IV PRN (07:21)
[2025-01-31] MEDS ORDERED: ePHEDrine sulfate 50 MG/ML AMP IV PRN (07:21)
[2025-01-31] MEDS ORDERED: ATROPINE SULFATE 0.1 MG/ML 10ML SYR IV PRN (07:21)
[2025-01-31] MEDS ORDERED: ONDANSETRON INJ 2 MG/ML 2 ML VIAL IV PRN ×2 (07:21→10:58)
[2025-01-31] MEDS ORDERED: NALOXONE HCL 0.4 MG/1 ML VIAL/CARP IV PRN ×2 (07:21→10:58)
[2025-01-31] MEDS ORDERED: HYDROmorphone INJ 1 MG/ML SYRINGE IV PRN ×2 (07:21→10:58)
--- NOTE | 2025-01-31 07:41 | History & Physical Bridge Note ---
Date of Service January 31, 2025 History & Physical Bridge Note I have examined the patient, reviewed the History & Physical and in the interval since the performance of the History & Physical I have noted the following changes of clinical significance: no changes noted
--- NOTE | 2025-01-31 07:44 | History & Physical Report ---
Date of Service January 31, 2025 Assessment & Plan (1) Neurogenic claudication due to lumbar spinal stenosis: Plan: L2-L3 decompression fusion History of Present Illness Chief Complaint: Back and leg pain Primary Care Provider: Danika Schwartz NP This is a 44-year-old male who presents with chronic back and leg pain after failing course of nonoperative care is here for surgical invention. Allergies Allergy/AdvReac Type Severity Reaction Status Date / Time No Known Allergies Allergy Verified 01/31/25 06:17 Home Medications Medication Instructions Recorded Confirmed Type acetaminophen 325 mg tablet 325 mg PO QID PRN Pain 06/20/23 01/31/25 History (Tylenol) ibuprofen 200 mg tablet 200 mg PO Q6H PRN Pain 06/20/23 01/31/25 History omeprazole 20 mg capsule,delayed 20 mg PO QAM PRN Heartburn 06/20/23 01/31/25 History release cholecalciferol (vitamin D3) 125 125 mcg PO BID 01/22/25 01/31/25 History mcg (5,000 unit) tablet (Vitamin D3) Past Med/Surg History Problem List History of lumbar spinal fusion Neurogenic claudication due to lumbar spinal stenosis Encounter for pre-operative examination Medical History Cerebral palsy lives alone, 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 speech can be difficult to understand, patient can read and sign his name, but does have difficult time writing. Chronic back pain Degenerative disc disease Heartburn occasional, controlled, stable per pt History of COVID-19 2020 - mild cold symptoms - denies hospitalization - symptoms resolved Sleep apnea hx of UPPP surgery, no machine currently. Spinal stenosis Surgical History History of incision and drainage x2--07/18/23 and 07/23/23 @ [facility] on lumbar spine History of lumbar spinal fusion (07/10/23) History of myringotomy BMT S/P epidural steroid injection S/P tendon repair bilateral knee and ankle tendons lengthened. (1992) Status post uvulopalatopharyngoplasty (~2016) Family History Other No family history of adverse response to anesthesia Social History Smoking Status: Never smoker Second Hand Exposure: No; Do You Dip or Chew Tobacco: No; Tobacco Cessation Education Requested by Patient: No Hx Alcohol Use: Yes Alcohol type: hard liquor Hx Substance Use: No Preferred Language: Swedish Communication Ability: Impaired Communication Ability Comment: speech can be difficult to understand at times, can sign own name Purifying Plant Operator Required: No Beliefs That Will Affect Care: None Current Living Situation: Alone Other Information That Helps Us Care for You: No Feels Safe at Home: Yes Safety Concerns: Feels Safe At This Time Gender Identity: Male Assistive Devices: Denture - Upper, Denture - Lower and Glasses Assistive Devices Comment: reading glasses Physical Exam Physical Exam: Patient is alert and oriented Heart regular rhythm Lungs clear Results & Data Results & Data Vital Signs (Past 12 Hours) Vital Signs Temp Pulse Resp BP Pulse Ox O2 Del Method 01/31/25 06:20 36.4 C L 86 18 130/79 95 Room Air
[2025-01-31] MEDS: ceFAZolin 2000MG 2,000 MG/15 ML SYR IV SCH ×2 (07:52→16:32)
[2025-01-31] MEDS: BUPIVACAINE/EPINEPHRINE 0.25% 1:200,000 30 ML VIAL ONE (08:29)
[2025-01-31] MEDS: ceFAZolin 330 MG/ML 1 GM VIAL ONE (08:29)
[2025-01-31] MEDS ORDERED: SUGAMMADEX SODIUM 200 MG/2 ML VIAL IV ONE (09:05)
[2025-01-31] MEDS: FLOSEAL HEMOSTATIC MATRIX 10ML TOP ONE (09:07)
--- NOTE | 2025-01-31 09:18 | Operative Report ---
Post Operative Report Pre & Post Diagnosis Operation Date: 01/31/25 07:45 Pre-Op Diagnosis: #1 lumbar spondylosis with radiculopathy #2 lumbar spinal stenosis with radiculopathy Post-Op Diagnosis: Same I identified the patient and participated in the time-out.: Yes Procedure Operation Date: 01/31/25 07:45 Actual Procedures #1 lumbar decompression bilateral medial facetectomies and foraminotomies L2-L3. #2 posterior spinal fusion L2-L3. #3 placement posterior instrumentation L2-L3 using Guzmán. #4 interbody fusion L2-L3. #5 placement Spira 12 x 26 mm L2-L3. #6 placement locally harvested morselized autograft and posterior gutters. #7 placement infuse collagen sponge with Koros in the posterior lateral gutters and os design interbody space. #8 application of versa wrap of the exposed dura. Surgeon John Shilrey DO Patient Partner Romeo Samaniego Estimated Blood Loss 50 Findings Consistent with Post-Op Diagnosis Specimens None Indications This is a 44-year-old male who presents with chronic persistent lumbar radiculopathy after failing course of nonoperative care is here for surgical intervention. Description of Procedure Patient was met with identified informed consent obtained. Patient was then taken to the operative suite underwent intubation placed in a prone position on the Kwesi table top of the Edilberto frame. All bony prominences well-padded eyes inspected to ensure no external pressure placed upon them. This point lumbar spine was prepped and draped no sterile fashion. Sharp dissection with the assistance of Bovie cautery from down to and exposing the lamina and transverse processes of L2-L3. From caudal cephalad fashion complete laminect sukhdev of L2 was performed including bilateral medial facetectomies and foraminotomies addressing severe subarticular foraminal stenosis. Pedicle screws were then placed at L2-L3 bilaterally with the assistance of fluoroscopy and the probe size were placed. By the transforaminal approach on the left complete discectomy was performed endplates guided distal cortical bleeding bone and a 12 x 26 mm spiral cage filled with os design bone graft tapped in position. The rods were then locked in a final position bilaterally. The transverse processes of L2-L3 burred to subcortical bleeding bone. Infuse collagen sponge, with Koros and local autograft placement posterior lateral gutters. 15 round SANTY drain inserted. Versa wrap placed over exposed dura. Incision was then closed with 1 Vicryl the fascia 2-0 Vicryl subcutaneously and 4 Monocryl for fascial closure. Steri-Strips and sterile dressing placed. Patient waken taken the PACU in stable condition. Please note spinal cord monitoring was utilized at the procedure no changes noted. Romeo Phillips was present at the entire procedure and all the patient positioning complex portion of the surgery and final skin closure. Im ordering 10 grams of Collagen Powder ([facility] A6010 Primary Dressing) and 10 bordered super absorbent ([facility] A6196 Secondary Dressing) to treat an incision wound that was caused by a spine procedure. The incision is approximately 2 cm(W) x 2 cm(L) down to the spinal column and epidural space 2 cm (D) in size and is a full thickness wound showing no signs of infection. Collagen comes in 1 gram packets so 10 packets were ordered. Given the size of the wound, with moderate exudate I chose to order a 10 day supply. The patient will be provided instructions for proper application of the collagen wound kit. The patient will be asked to apply the collagen powder daily and then cover it with sterile dressings dispensed. Collagen was selected as I expect the collagen to attract monocytes and fibroblasts, act as a sacrificial substrate for MMPs, and ultimately proved a matrix for tissue and vessel growth. The collagen will act as a primary dressing in this scenario. It is medically necessary for proper healing of these wounds to improve bioavailability and contact with each wound surface, this is also to help prevent infection of wounds and promote healing ultimately leading to a better healing outcome and limit the risk of infection. I attest to the content of the Intraoperative Record and any orders documented therein. Any exceptions are noted below.
[2025-01-31] MEDS: fentaNYL citrate PF 100 MCG/2 ML VIAL IV PRN (10:12)
--- NOTE | 2025-01-31 10:42 | Anesthesiology Progress Note ---
Date of Service January 31, 2025 Anesthesia Post Procedure Vital Signs Vital Signs: Temp Pulse Pulse Resp BP Pulse Ox O2 Del Method 01/31/25 10:30 87 21 117/74 98 Oxymask 01/31/25 10:20 83 12 130/74 96 Oxymask 01/31/25 10:10 74 13 104/65 95 Oxymask 01/31/25 10:00 72 13 105/64 95 Oxymask 01/31/25 09:50 75 12 108/66 95 Oxymask 01/31/25 09:42 36 C L 76 12 116/65 95 Oxymask 01/31/25 06:20 36.4 C L 86 18 130/79 95 Room Air O2 Flow Rate 01/31/25 10:30 5 01/31/25 10:20 5 01/31/25 10:10 5 01/31/25 10:00 5 01/31/25 09:50 5 01/31/25 09:42 5 01/31/25 06:20 Pain Intensity Back: Pain Intensity: 5 Transfer of Care Handoff Completed per policy Notes Mental Status: alert / awake / arousable Patient Amnestic to Procedure: Yes Nausea / Vomiting: adequately controlled Pain: adequately controlled Airway Patency, RR, SpO2: stable & adequate BP & HR: stable & adequate Hydration State: stable & adequate Anesthetic Complications: no major complications apparent
[2025-01-31] MEDS ORDERED: MAGNESIUM HYDROXIDE SUSP 30 ML UDC PO PRN (10:58)
[2025-01-31] MEDS ORDERED: METOCLOPRAMIDE HCL INJ 5 MG/ML 2 ML VIAL IV PRN (10:58)
[2025-01-31] MEDS ORDERED: bisacodyL 10 MG SUPP PR PRN (10:58)
[2025-01-31] MEDS ORDERED: LORazepam 0.5 MG TAB PO PRN (10:58)
[2025-01-31] MEDS ORDERED: DO NOT ADMINISTER PNEUMOCOCCAL VACCINE PRN (10:58)
[2025-01-31] MEDS ORDERED: ONDANSETRON 4 MG OD TAB PO PRN (10:58)
[2025-01-31] MEDS ORDERED: diphenhydrAMINE Capsule 25 MG CAP PO PRN (10:58)
[2025-01-31] MEDS ORDERED: LORazepam 2 MG/1 ML VIAL IV PRN (10:58)
[2025-01-31] MEDS ORDERED: SOD PHOSPHATE/SOD BIPHOSPHATE ENEMA 132 ML BTL PR PRN (10:58)
[2025-01-31] MEDS ORDERED: PROMETHAZINE 12.5 MG/50.5 ML BAG IV PRN (10:58)
[2025-01-31] MEDS ORDERED: DO NOT ADMINISTER FLU VACCINE PRN (10:58)
[2025-01-31] MEDS ORDERED: ACETAMINOPHEN 1,000 MG/100 ML VIAL IV PRN (10:58)
[2025-01-31] MEDS ORDERED: hydrOXYzine HCl 25 MG TAB PO PRN (10:58)
[2025-01-31] MEDS ORDERED: FAMOTIDINE 20 MG TAB PO PRN (10:58)
[2025-01-31] MEDS ORDERED: ALUMINUM/MAGNESIUM SUSP 30 ML UDC PO PRN (10:58)
[2025-01-31] MEDS ORDERED: PANTOprazole 40 MG TAB PO PRN (11:33)
--- NOTE | 2025-01-31 13:06 | Fluoroscopy Report ---
FL lumbar spine 2-3V CLINICAL HISTORY: L2-L3 Decompression/fusion COMPARISON STUDY: 07/26/2023 FLUOROSCOPY TIME: 18 seconds FLUOROSCOPY IMAGES: 3 EXPOSURE DOSE: 8 mGy FINDINGS: Fluoroscopy was provided for L2-3 decompression and metallic fusion. IMPRESSION: Intraoperative fluoroscopy. ACT 112: Negative or not required by law. Electronically signed by: Dick Perez M.D. 01/31/2025 1:05 PM
[2025-01-31] MEDS: HYDROmorphone INJ 0.5 MG/0.5 ML SYR IV PRN (13:44)
[2025-01-31] MEDS: DOCUSATE SODIUM/SENNA 50/8.6MG TAB PO SCH (20:47)
[2025-01-31] MEDS: CHOLECALCIFEROL 125 MCG (5,000 UNITS) TAB PO SCH (20:47)
[2025-01-31] MEDS: oxyCODONE HCL IR 5 MG TAB (IMMEDIATE RELEASE) PO PRN (22:54)
[2025-01-31] MEDS: ACETAMINOPHEN 500 MG TAB PO PRN (22:56)
[2025-02-01] MEDS: POLYETHYLENE (MIRALAX) 17 GM PACK PO SCH (06:07)
[2025-02-01 08:00] LABS: Basophils # (auto) 0.01 K/uL (0.00-0.20); Basophils % (auto) 0.1 %; Eosinophils # (auto) 0.06 K/uL (0.00-0.50); Eosinophils % (auto) 0.7 %; Hematocrit (blood only) 37.5 % (42.0-52.0); Immature Granulocytes # (auto) 0.03 K/uL (0.01-0.20); Immature Granulocytes % (auto) 0.3 %; Lymphocytes # (auto) 1.24 K/uL (1.20-3.40); Lymphocytes % (auto) 14.2 %; Mean Corpuscular Hemoglobin 31.9 pg (25.0-34.0); Mean Corpuscular Hgb Conc 34.7 g/dL (32.0-36.0); Mean Corpuscular Volume 91.9 fL (80.0-100.0); Mean Platelet Volume 8.9 fL (9.4-12.4); Monocytes # (auto) 0.55 K/uL (0.11-0.59); Monocytes % (auto) 6.3 %; Neutrophils # (auto) 6.86 K/uL (1.40-6.50); Neutrophils % (auto) 78.4 %; Platelet Count 194 K/uL (130-400); RDW Coefficient of Variation 11.9 % (11.5-14.5); RDW Standard Deviation 39.7 fL (36.4-46.3); Red Blood Count 4.08 M/uL (4.70-6.10); White Blood Count 8.75 K/ul (4.8-10.8)
[2025-02-01] MEDS: dexAMETHasone 6 MG in SYRINGE 0 ML IV SCH (08:04)
[2025-02-01 08:12] LABS: BUN Creatinine Ratio 12.3 (10-20); Calcium 8.7 mg/dl (8.6-10.3); Potassium 4.1 mmol/L (3.5-5.1)
--- NOTE | 2025-02-01 09:36 | Orthopedic Progress Note ---
Date of Service February 01, 2025 Assessment & Plan (1) Neurogenic claudication due to lumbar spinal stenosis: Plan: Patient is comfortable. Will continue with physical therapy. Monitor his SANTY operatively discharge home Monday. Admission and Anticipated Discharge Date Admission Date: January 31, 2025 Subjective Back pain controlled leg pain improved Physical Exam Physical Exam: Patient is currently in bed. Comfortable. Distracted testing. Results & Data Vital Signs (Past 12 Hours) Vital Signs Temp Pulse Resp BP Pulse Ox O2 Del Method O2 Flow Rate 02/01/25 07:20 36.6 C 85 16 109/69 94 Room Air 02/01/25 04:11 36.3 C L 87 18 99/61 L 94 Nasal Cannula 2 02/01/25 01:26 36.6 C 95 H 14 96/61 L 95 Nasal Cannula 1 01/31/25 23:30 36.7 C 106 H 18 109/66 95 Nasal Cannula 2
[2025-02-01] MEDS: traMADol HCL 50 MG TABLET PO PRN (16:01)
--- NOTE | 2025-02-02 07:59 | Orthopedic Progress Note ---
Date of Service February 02, 2025 Assessment & Plan (1) Neurogenic claudication due to lumbar spinal stenosis: Plan: Patient is doing well postoperative #2. Continue with PT and OT. Continue GI DVT prophylaxis. Will we will continue with pain control measures and he may use ice on his back up to 20 minutes at a time as needed. We are going to keep him today and likely discharge him home tomorrow. Admission and Anticipated Discharge Date Admission Date: January 31, 2025 Subjective Patient is seen bedside in room 377. He states he did okay in terms of leg pain. Does have some pain in the right lower hand side of the back. He would like to try some ice at this point. In general he feels okay. He is tolerating p.o. His pain is well-controlled. He denies any other numbness, tingling, or paresthesias. Physical Exam Physical Exam: On exam he is alert and oriented. He answers questions appropriately. His dressing is clean dry and intact. His SANTY drain is in place and holding suction has had 40 cc out this shift 50 on the previous. His strength and sensation are both intact his abdomen soft nontender his calves are supple and nontender. Results & Data Vital Signs (Past 12 Hours) Vital Signs Temp Pulse Resp BP BP Pulse Ox O2 Del Method 02/02/25 07:57 105/63 02/02/25 07:01 36.7 C 87 16 88/53 L 93 Room Air 02/01/25 21:50 36.7 C 77 18 107/69 94 Room Air
[2025-02-02 23:09] VITALS: O2SAT 94
[2025-02-03 07:36] VITALS: BP 115/70; PULSE 91; RESP 16; TEMP 98.4
--- NOTE | 2025-02-03 09:34 | Discharge Summary ---
Date of Service February 03, 2025 Admission HPI Per Admitting Provider This is a 44-year-old male who presents with chronic back and leg pain after failing course of nonoperative care is here for surgical invention. Principal Diagnosis Lumbar spondylosis with radiculopathy Discharge Data Allergies Allergy/AdvReac Type Severity Reaction Status Date / Time No Known Allergies Allergy Verified 01/31/25 06:17 Procedures Performed Operation Date: 01/31/25 07:45 Actual Procedures p L2-L3 Decompression and Fusion, Spinal Cord Monitoring(Not Applicable) - John Shirley DO Ordered Studies 01/31/25 06:30 [place] lumbar spine 2-3V Routine Hospital Course (1) Neurogenic claudication due to lumbar spinal stenosis: Patient went lumbar decompression fusion tolerated as well as taken orthopedic for postoperative. Postop he progressed appropriately. Marked improvement of his radiculopathy. Tolerating physical therapy. SANTY drain decreasing. Good strength testing. Subsidy discharged home. Discharge orders and instructions from the chart for further review. Total Time Total Time Spent Total Time Spent (In Minutes): 20 minutes Discharge Plan Discharge Items Patient Disposition: Home - Self-Care Reason For Visit: Herniated Nucleus Pulposus Lumbar, Foraminal Steno Discharge Diagnosis: Lumbar spondylosis with radiculopathy Activity: As commented below Non-emergency contact: Primary Care Provider Call non-emergency contact if: you have any medication questions Follow-up/Referrals: Danika Schwartz NP [Primary Care Provider] - Diet: Regular Addtl Attending Provider Instructions: ACTIVITY RECOMMENDATIONS: SELF CARE INSTRUCTIONS AFTER THORACIC/LUMBAR FUSIONS 1. You may walk to your tolerance. It is good exercise for your legs and back. Expect some back and intermittent leg aches and pains. 2. You may perform "counter-top" level activities (make a sandwich, vinay with a project, etc.). 3. No bending or lifting of more than 10 pounds or back twisting of any nature (roll like a log when turning in bed). 4. You may ride in a car for 20-30 minutes at a time. No driving until after your first visit with your doctor. 5. Frequent changes of position and restricting sitting to 30 minutes at a time will help limit the amount of back spasms and stiffness you may experience. 6. You may discontinue the use of ambulatory aids (cane, crutches, etc.) once your strength and confidence allow. 7. You may buncher machine the shower and let water strike your incision when you arrive home at least once daily. Do not take a tub bath, sit in a hot tub or go into a swimming pool until after your first recheck in the office. 8. You may resume previous diet. SPECIAL CARE INSTRUCTIONS: VERY IMPORTANT TO READ AND REVIEW A. Your surgical incision has been closed with a cosmetic suture under the skin that will dissolve in about 6 weeks. In 14 days, you can use a pair of clean scissors and cut the suture that is left outside of the skin at the ends of your incision. 1. The small skin tapes can be removed 7 days after surgery if they have not fallen off by that point. 2. You may keep the wound open to air as much as possible to promote healing after post-op day number 5 unless told otherwise by your doctor. 3. If you think the wound looks like it is becoming infected (redness or worsening drainage) and/or you are experiencing fever, chill or worsening back pain and muscle spasms, contact the office so that we may evaluate you as soon as possible. B. Complications are uncommon, but please contact us if you have any signs or symptoms of: 1. wound infection (fever higher than 102.5 degrees F, redness, separation of wound, drainage, or increasing pain from the incision) 2. blood clots in legs (pain, swelling, redness and warmth in legs) 3. urinary tract infection (fever higher than 102.5 degrees F, burning upon urination or increased frequency of urination) 4. nerve problems (inability to walk on your toes or heels, numbness, loss of bowel or bladder control) 5. any other symptoms that concern you C. Please call the office at if you have any concerns or questions about your operation or recovery. D. No smoking! Smoking drastically decreases the chance of a solid fusion. E. Do not take any anti-inflammatory medications (Indocin, Advil, Motrin, Aspirin, Naprosyn, etc.) as these may inhibit the chance of a solid fusion. Tylenol is okay to take for pain. MANAGING PAIN AFTER SPINAL SURGERY 1. Narcotic medication is intended for short-term use and will be provided for surgical pain. Surgical pain usually lasts for a period of 4-6 weeks. Narcotic medication includes Percocet, Vicodin, Darvocet, Tylenol #3 or Lortab. 2. Longer-term pain is more appropriately treated with non-narcotic medication such as Tylenol ES. 3. Muscle spasm is not appropriately treated with narcotics. Muscle relaxers such as Soma, Flexeril or Skelaxin can be used along with Tylenol ES. 4. Remember that we all live with some "aches and pains". This is not unusual or uncommon after an injury or as we get older. a. Back pain is expected and may include muscle spasms for 4 to 6 weeks after surgery. The pain should gradually improve. If the pain worsens for no apparent reason, please contact the office. b. Intermittent leg pain may also be experienced and should not be concerned about unless it worsens for no apparent reason. If so, please contact the office. 5. We will provide appropriate medication within the normal guidelines of their prescribed use. We will also be very cautious and aware of potential abuse and extended duration of patients' medication needs. a. Pain medications are for your comfort and to assist with sleep and rest so that the tissue can heal. They are not provided in order to return to normal activity and should not be used through the day. To do so or worsening pain at night can result from ongoing tissue damage and development of tolerance to the prescribed medicine. 6. Please allow 2-3 days to process refills. Prescriptions will not be mailed but must be picked up at the office. FOLLOW UP VISIT: Keep your scheduled follow-up appointment. Any questions, please call the office at . Pending Studies at Discharge: No Stand-Alone Forms: My [facility] [employer], Smoking Cessation Medications and DC Order Prescriptions: New tramadol 50 mg tablet 50 mg PO Q6H PRN (Reason: pain, moderate) Qty: 30 0RF oxycodone 5 mg tablet 5 mg PO Q6H PRN (Reason: pain) Qty: 30 0RF Continued omeprazole 20 mg Capsule,Delayed Release(Dr/Ec) 20 mg PO QAM PRN (Reason: Heartburn) acetaminophen [Tylenol] 325 mg Tablet 325 mg PO QID PRN (Reason: Pain) cholecalciferol (vitamin D3) [Vitamin D3] 125 mcg (5,000 unit) Tablet 125 mcg PO BID Discontinued ibuprofen 200 mg Tablet 200 mg PO Q6H PRN (Reason: Pain) Discharge Orders: Discharge Order (Routine); Ordered 02/03/25 Ordered By: John Shirley Admission Data Admit Date/Time: 01/31/25 09:24 Attending Provider: John Shirley Admit Provider: John Shirley Primary Care Provider: Danika Schwartz
== END 2025-02-03 14:00 | disposition home or self-care (01) | DRG 402 ==
LOC: ASU 06:18 → 3N 09:24